=== PATIENT | female | born 2000 | race Caucasian/White ===

== ENCOUNTER 2023-04-14 09:47 | Emergency (ER) | payer BC, SELFPAY ==
[2023-04-14 09:59] VITALS: BP 167/94; PULSE 108; RESP 18; TEMP 36.7; O2SAT 95; BMI 38.3
--- NOTE | 2023-04-14 10:04 | ED.URI1 ---
HPI - URI/Sore Throat General Chief Complaint: Upper Respiratory Infection Stated Complaint: SORE THROAT Time Seen by Provider: 04/14/23 10:04 History of Present Illness HPI Narrative: Chest emergency department complaining of a sore throat. Patient states she's had a sore throat for 3 days. She denies any difficulty swallowing but states that it hurts. She has tried cough drops. She denies any runny nose or cough. She denies any chest, shortness of breath. She denies any fever, chills. Denies any sick contacts. She denies any rashes, headache. She denies any nausea, vomiting, diarrhea, constipation, abdominal pain. Denies any flank pain, hematuria, dysuria. Related Data Allergies Allergy/AdvReac Type Severity Reaction Status Date / Time cephalosporins Allergy Unknown Uncoded 04/14/23 10:48 Review of Systems ROS Status of ROS 10 or more systems reviewed and unremarkable except as noted in history and below Exam Narrative Exam Narrative: Nurses notes and vital signs reviewed and patient is not hypoxic. General: Nontoxic, Well-appearing and in no apparent distress. Skin: Warm, dry, no pallor noted. No Rash Head: Normocephalic, atraumatic. Neck: Supple, non-tender. Eye: Pupils are equal, round and EOMI. No scleral icterus. Ears, Nose, Mouth, and Throat: TM clear, posterior oropharynx erythema, Tonsillar hypertrophy without exudates. No asymmetry. No nasal mucosal hypertrophy, uvula is mid-line Oral mucosa is moist Cardiovascular: Regular Rate and Rhythm without murmur, gallop or rub. Respiratory: No accessory muscle use or respiratory distress. Lungs are clear to auscultation, no wheezing, rales or rhonchi Chest Wall: no tenderness Back: No midline thoracic or lumbar vertebral tenderness. No CVA tenderness Musculoskeletal: normal ROM, no calf or popliteal tenderness, no lower extremity edema/swelling GI: Abdomen is soft, non-distended. Normal bowel sounds. No masses appreciated. No tenderness to palpation. No rebound, guarding, or rigidity noted. Neurological: A&O x4. No cranial nerve dysfunction observed. No truncal ataxia. Moves all extremities. Sensation intact. Psychiatric: Cooperative and interactive. Normal mood and affect. Constitutional Vital Signs - 24 hr 04/14/23 09:59 Temperature 98.1 F Pulse Rate [Monitor] 108 H Respiratory Rate 18 Blood Pressure [Right Arm] 167/94 H Pulse Oximetry 95 Oxygen Delivery Method Room Air Course Vital Signs Vital signs: Vital Signs Temperature 98.1 F 04/14/23 09:59 Pulse Rate 108 H 04/14/23 09:59 Respiratory Rate 18 04/14/23 09:59 Blood Pressure 167/94 H 04/14/23 09:59 Pulse Oximetry 95 04/14/23 09:59 Oxygen Delivery Method Room Air 04/14/23 09:59 Temperature 98.1 F 04/14/23 09:59 Pulse Rate 108 H 04/14/23 09:59 Respiratory Rate 18 04/14/23 09:59 Blood Pressure 167/94 H 04/14/23 09:59 Pulse Oximetry 95 04/14/23 09:59 Oxygen Delivery Method Room Air 04/14/23 09:59 MDM - URI/Sore Throat MDM Narrative Medical decision making narrative: Other results discussed with patient. Patient advised she is ALLERGIC to cephalosporins. She has taken amoxicillin in the past. She opts for an injection of Bicillin L-A. Patient is advised follow-up with primary care doctor regarding her blood pressure. She states she had preeclampsia but has never been diagnosed with hypertension. Advised to monitor her blood pressure at home and other settings and documented so when she sees her doctor she couldn't give them readings. At this time the patient is without objective evidence of an acute process requiring hospitalization or inpatient management. The patient has remained hemodynamically stable. No additional indication for emergent studies at this time. I answered all questions. Discussed discharge instructions including standard anticipatory guidance and what should prompt a return to the emergency department, including if they get worse are not getting better or develops any new or concerning symptoms. I've given them specific time frame in which to follow-up, and who to follow-up with. The patient demonstrates understanding. Patient is nontoxic and stable for discharge with outpatient follow-up. This note was created with the assistance of a speech recognition program. Although the intention is to generate documents that actually reflects the content of the visit, no guarantees can be provided that every mistake has been identified and corrected by editing. Differential Diagnosis Differential diagnosis: Likely upper respiratory infection, otitis media, sinusitis, viral infection and pharyngitis Lab Data Attestation: I reviewed the patient's lab results. Labs: Lab Results 04/14/23 Range/Units 10:01 Streptococcus Screen Positive A Discharge Plan Discharge Chief Complaint: Upper Respiratory Infection Clinical Impression: Acute streptococcal pharyngitis Patient Disposition: Home, Self-Care Time of Disposition Decision: 10:50 Condition: Good Mode of Transportation: Private Vehicle Instructions: Strep Throat (ED) Additional Instructions: [id number] lozenges, follow up with primary care doctor regarding high blood pressure. Return to the emergency department with any positive symptoms as discussed. Stand Alone Forms: Portal Instructions Discharge Date/Time: 04/14/23 11:22
[2023-04-14 10:41] LABS: Internal Control Within Normal Limits; Strep A Antigen Screen Positive
[2023-04-14] MEDS: PENICILLIN G BENZATHINE 1,200,000 UNIT/2 ML SYRINGE 1200000 UNIT IM (11:18)
== END 2023-04-14 11:22 | disposition home or self-care (01) ==
LOC: ER 04-17 08:13
PROVIDERS: Emergency Provider Emergency Medicine; PCP Specialist
DX: J02.0 Streptococcal pharyngitis (principal)
CPT/HCPCS: 87880; 96374; 99284

== ENCOUNTER 2023-06-23 07:19 | Emergency (ER) | payer BC, OTHER, SELFPAY ==
[2023-06-23 07:23] VITALS: BP 132/86; PULSE 96; RESP 16; TEMP 36.7; O2SAT 97; BMI 38.7
[2023-06-23] MEDS: FLUORESCEIN SODIUM 1 MG STRIP OP (07:49)
--- NOTE | 2023-06-23 07:51 | ED.EYEPROB1 ---
HPI - Eye Problem General Chief complaint: Eye Problems Stated complaint: EYE REDNESS Time Seen by Provider: 06/23/23 07:32 Source: patient Mode of arrival: walk-in Limitations: no limitations History of Present Illness HPI Narrative: bilateral eye redness and pain. No injury. Does not wear contact lenses - wears glasses. No URI symptoms. Related Data Previous Rx's Medication Instructions Recorded tobramycin 0.3 %-dexamethasone 0.1 1 drp ophthalmic (eye) Q6H 7 days 06/23/23 % eye drops,suspension (TobraDex) #5 mL Allergies Allergy/AdvReac Type Severity Reaction Status Date / Time cefaclor [From [facility]] AdvReac Severe Verified 06/23/23 07:27 cephalosporins Allergy Unknown Uncoded 06/23/23 07:27 PFSH PFSH Social History Smoking status: Never smoker Exam Narrative Exam Narrative: General: The patient appears well and in no apparent distress. Patient is resting comfortably on cart. Skin: Warm, dry, no pallor noted. Head: Normocephalic, atraumatic Neck: Supple, trachea mid-line, no tenderness, no lymphadenopathy Eye: Normal extraocular motion without associated pain. Pupils equal, round and reactive to light. Conjunctival injection noted bilaterally. No swelling of the upper/lower eyelid. Patient's upper eyelid was everted - no evidence of foreign body. The patient had ALCAINE/TETRACAINE applied to the left & right eye with fluorescein dye instilled afterward. Exam with Wood's lamp showed NO uptake at the cornea. No evidence of hyphema, dendritic lesion, corneal ulcerations, preseptal cellulitis or orbital cellulitis. Ears, Nose, Mouth, and Throat: oral mucosa is moist Respiratory: Patient is in no distress Neurological: A&O x4, normal speech Psychiatric: Cooperative and interactive. Constitutional Vital Signs, click to edit/add: Last Vital Signs Temp 98.1 F 06/23/23 07:23 Pulse 96 H 06/23/23 07:23 Resp 16 06/23/23 07:23 BP 132/86 06/23/23 07:23 Pulse Ox 97 06/23/23 07:23 O2 Del Method Room Air 06/23/23 07:23 Course Vital Signs Vital signs: Vital Signs Temperature 98.1 F 06/23/23 07:23 Pulse Rate 96 H 06/23/23 07:23 Respiratory Rate 16 06/23/23 07:23 Blood Pressure 132/86 06/23/23 07:23 Pulse Oximetry 97 06/23/23 07:23 Oxygen Delivery Method Room Air 06/23/23 07:23 Temperature 98.1 F 06/23/23 07:23 Pulse Rate 96 H 06/23/23 07:23 Respiratory Rate 16 06/23/23 07:23 Blood Pressure 132/86 06/23/23 07:23 Pulse Oximetry 97 06/23/23 07:23 Oxygen Delivery Method Room Air 06/23/23 07:23 MDM - Eye Problem MDM Narrative Medical decision making narrative: prescribed tobradex and referred to [facility] for follow up Discharge Plan Discharge Chief Complaint: Eye Problems Clinical Impression: Conjunctivitis Patient Disposition: Home, Self-Care Time of Disposition Decision: 07:49 Prescriptions / Home Meds: New tobramycin-dexamethasone [TobraDex] 0.3-0.1 % drops,suspension 1 drp ophthalmic (eye) Q6H 7 Days Qty: 5 0RF Rx Instructions: 1 drop in each eye Stand Alone Forms: Portal Instructions Referrals: ELIANA CASTRO [Physician] - As soon as possible ELIANA HERNANDEZ [Physician] - As soon as possible
== END 2023-06-23 07:59 | disposition home or self-care (01) ==
PROVIDERS: Emergency Provider Emergency Medicine; PCP Family Medicine
DX: H10.9 Unspecified conjunctivitis (principal)
CPT/HCPCS: 99284

== ENCOUNTER 2023-11-12 22:52 | Outpatient (REF) | payer BC, OTHER, SELFPAY ==
[2023-11-15 18:10] LABS: Age Gdln ACOG Testing Note (.); IGP, rfx Aptima HPV ASCU Note (.)
== END 2023-11-12 22:53 | disposition home or self-care (01) ==
LOC: LAB 22:52
PROVIDERS: PCP Family Medicine; Visit Provider Obstetrics & Gynecology
DX: Z01.419 Encounter for gynecological examination (general) (routine) without abnormal findings (principal)
CPT/HCPCS: G0145

== ENCOUNTER 2024-01-02 16:13 | Emergency (ER) | payer BC, OTHER, SELFPAY ==
[2024-01-02 16:17] VITALS: BP 137/96; PULSE 101; RESP 20; TEMP 37.6; O2SAT 97; BMI 43.8
--- NOTE | 2024-01-02 16:25 | ED.GENADUL1 ---
HPI - General Adult General Chief complaint: Upper Respiratory Infection Stated complaint: Sore THROAT Time Seen by Provider: 01/02/24 16:24 Source: patient Mode of arrival: walk-in Limitations: no limitations History of Present Illness HPI narrative: Patient is a 23-year-old female who is presenting to the ER with chief complaint of sore throat. Patient states that she has been sick for 2-3 days of a sore throat, sinus congestion. Patient's mother is at home with COVID. Patient has no nausea, vomiting, diarrhea. 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 No specific sick contacts, she heard a 1 child having strep throat last week. Patient has had 2 home, tests that were negative. Patient chief concern is strep throat. Patient has no rash. No significant headache, neck pain, and other significant complaints. All systems are negative except as noted/marked. All systems reviewed and otherwise negative. Nurses note and vital signs reviewed and patient is not hypoxic. General: The patient appears well and in no apparent distress. Patient is resting comfortably on cart. Patient is not toxic, lethargic, or listless Skin: Warm, dry, no pallor noted. There is no rash noted. No petechiae, purpura. Head: Normocephalic, atraumatic Eye: Normal conjunctiva, no drainage, EOMI. PERRL Ears, Nose, Mouth, and Throat: oral mucosa is moist. Bilateral tympanic membrane shows no erythema, perforation or bulging. Patient has mild clear drainage noted to the posterior pharynx. No petechiae or exudate. No unilateral swelling. Nares patent. Mouth without vesicles. Cardiovascular: Regular Rate and Rhythm, no murmur, gallop, rub Respiratory: Patient is in no distress, no accessory muscle use, lungs are clear to auscultation, no wheezing, rales or rhonchi Back: non-tender, GI: Obese, soft, no tenderness Musculoskeletal: Patient has full range of motion of all of the extremities, no motor, sensory, or focal neurological deficits Neurological: A&O x4, normal speech Psychiatric: Cooperative Related Data Home Medications Medication Instructions Recorded Confirmed No Known Home Medications 01/02/24 01/02/24 Allergies Allergy/AdvReac Type Severity Reaction Status Date / Time cefaclor [From Ceclor] AdvReac Severe Verified 06/23/23 07:27 cephalosporins Allergy Unknown Uncoded 06/23/23 07:27 PFSH [facility] Social History Smoking status: Never smoker Exam Constitutional Vital Signs, click to edit/add: Last Vital Signs Temp 99.6 F 01/02/24 16:17 Pulse 101 H 01/02/24 16:17 Resp 20 01/02/24 16:17 BP 137/96 H 01/02/24 16:17 Pulse Ox 98 01/02/24 16:28 O2 Del Method Room Air 01/02/24 16:28 Course Vital Signs Vital signs: Vital Signs Temperature 99.6 F 01/02/24 16:17 Pulse Rate 101 H 01/02/24 16:17 Respiratory Rate 20 01/02/24 16:17 Blood Pressure 137/96 H 01/02/24 16:17 Pulse Oximetry 97 01/02/24 16:17 Oxygen Delivery Method Room Air 01/02/24 16:17 Temperature 99.6 F 01/02/24 16:17 Pulse Rate 101 H 01/02/24 16:17 Respiratory Rate 20 01/02/24 16:17 Blood Pressure 137/96 H 01/02/24 16:17 Pulse Oximetry 98 01/02/24 16:28 Oxygen Delivery Method Room Air 01/02/24 16:28 Medical Decision Making MDM Narrative Medical decision making narrative: Patient was given oral Decadron to help with pharyngitis, and help with illness. Patient's had 2 Covid tests were negative at home. Strep test is negative. Education on treating symptoms was done at bedside and on discharge paperwork. Patient will follow-up with PCP. Work note was given if needed. Patient had a purple popsicle no difficulty. Patient looks well. Lab Data Labs: Lab Results 01/02/24 Range/Units 16:25 Streptococcus Screen Negative Discharge Plan Discharge Chief Complaint: Upper Respiratory Infection Clinical Impression: Sinus congestion, Flu-like symptoms, Pharyngitis Patient Disposition: Home, Self-Care Time of Disposition Decision: 16:58 Condition: Fair Prescriptions / Home Meds: No Action No Known Home Medications Instructions: Pharyngitis (ED), Cold Symptoms (ED) Additional Instructions: Increase fluids at home, Gatorade, Powerade, or water. Alternate using DayQuil, NyQuil, and Flonase. At Mucinex as well as needed. Alternate Tylenol and Motrin every 4 hours to help with fever control, body aches or joint pain. Use [id number] vitamin C, vitamin D3, and zinc to help fight infection and help with her immune system. Stand Alone Forms: Work/School Release, Portal Instructions Referrals: VLAD GARCIA [Primary Care Provider] - 1 week Discharge Date/Time: 01/02/24 17:14
[2024-01-02 16:28] VITALS: O2SAT 98
[2024-01-02 16:41] LABS: Internal Control Within Normal Limits; Strep A Antigen Screen Negative
[2024-01-02] MEDS: DEXAMETHASONE SOD PHOS 10 MG/ML VIAL 16 MG PO (17:09)
== END 2024-01-02 17:14 | disposition home or self-care (01) ==
PROVIDERS: Emergency Provider Emergency Medicine; PCP Family Medicine
DX: J02.9 Acute pharyngitis, unspecified (principal); R09.81 Nasal congestion
CPT/HCPCS: 87070; 87880; 99283; J1100

== ENCOUNTER 2024-09-04 18:55 | Emergency (ER) | payer MEDICAID, SELFPAY ==
[2024-09-04 19:00] VITALS: BP 164/107; PULSE 102; TEMP 36.7; O2SAT 96; BMI 45.4
--- OUTSIDE RECORDS SUMMARY | 2024-09-04 19:00 | XMS_ITS | CCD ---
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 a thromboembolic event cannot be diagnosed with certainty on the basis of the reference range. D-Dimers may also be elevated for a variety of disorders including: advanced age, , coronary disease, cancer, liver disease, infection, inflammation, hematoma, DIC, trauma, post-surgery, diabetes, thrombolytic or anticoagulant therapy, stress, and generalized hospitalization. Performed By: #### N BOX #### [facility] [address] [place] [address] Dr. Oscar Maddox FIBRINOGENon 06-27-2022 FIBRINOGEN 653.0 mg/dl Critically high 200.0-400.0 [facility] Comment on above: Performed By: #### N BOX #### [facility] [address] [place] [address] Dr. Oscar Maddox PROF 14(COMP METB)on 022 Albumin [Mass/Vol] 2.2 g/dL Critically low 3.4-5.[address] [facility] Comment on above: Performed By: #### R UBIGG #### [facility] [address] [address] [address] Oscar Maddox Albumin/Globulin [Mass ratio] 0.6 {ratio} Normal [facility] Comment on above: Performed By: #### R UBIGG #### [facility] [address] [address] [address] Oscar Maddox ALP [Catalytic activity/Vol] 157 U/L Critically high 46-116 [facility] Comment on above: Performed By: #### R UBIGG #### [facility] [address] [address] [address] Oscar Maddox ALT [Catalytic activity/Vol] 53 U/L Normal 14-59 [facility] Comment on above: Performed By: #### R UBIGG #### [facility] [address] [place] [address] Dr. Oscar Maddox Anion gap [Moles/Vol] 11.2 mmol/L Normal [facility] Comment on above: Performed By: #### R UBIGG #### [facility] [address] [place] [address] Dr. Oscar Maddox AST [Catalytic activity/Vol] 72 U/L Critically high 15-37 [facility] Comment on above: Performed By: #### R UBIGG #### [facility] [address] [place] [address] Dr. Oscar Maddox Bilirubin [Mass/Vol] 0.9 mg/dL Normal 0.2-1.0 [facility] Comment on above: Performed By: #### R UBIGG #### [facility] [address] [place] [address] Dr. Oscar Maddox Calcium [Mass/Vol] 7.9 mg/dL Critically low 8.5-10.1 [facility] Comment on above: Performed By: #### R UBIGG #### [facility] [address] [place] [address] Dr. Oscar Maddox Chloride [Moles/Vol] 103 mmol/L Normal 98-107 [facility] Comment on above: Performed By: #### R UBIGG #### [facility] [address] [place] [address] Dr. Oscar Maddox CO2 [Moles/Vol] 22.7 mmol/L Normal 21.0-32.0 [facility] Comment on above: Performed By: #### R UBIGG #### [facility] [address] [place] [address] Dr. Oscar Maddox Creatinine [Mass/Vol] 0.87 mg/dL Normal 0.55-1.02 [facility] Comment on above: Performed By: #### R UBIGG #### [facility] [address] [place] [address] Dr. Oscar Maddox EGFR-AF ALBANIAN >60 Normal >=60 [facility] Comment on above: Performed By: #### R UBIGG #### [facility] [address] [place] [address] Dr. Oscar Maddox EGFR-NON AF ALBANIAN >60 Normal >=60 [facility] Comment on above: Performed By: #### R UBIGG #### [facility] [address] [place] [address] Dr. Oscar Maddox Globulin (S) [Mass/Vol] 3.8 g/dL Normal [facility] Comment on above: Performed By: #### R UBIGG #### [facility] [address] [place] [address] Dr. Oscar Maddox Glucose [Mass/Vol] 109 mg/dL Critically high 74-106 [facility] Comment on above: Performed By: #### R UBIGG #### [facility] [address] [address] [address] Oscar Maddox Potassium [Moles/Vol] 3.9 mmol/L Normal 3.5-5.1 [facility] Comment on above: Performed By: #### R UBIGG #### [facility] [address] [place] [address] Dr. Oscar Maddox Protein [Mass/Vol] 6.0 g/dL Critically low 6.4-8.2 Th [facility] Comment on above: Performed By: #### R UBIGG #### [facility] [address] [place] [address] Dr. Oscar Maddox Sodium [Moles/Vol] 133 mmol/L Critically low 136-145 Th [facility] Comment on above: Performed By: #### R UBIGG #### [facility] [address] [address] [address] Oscar Maddox Urea nitrogen [Mass/Vol] 13.0 mg/dL Normal 7.0-18.0 [facility] Comment on above: Performed By: #### R UBIGG #### [facility] [address] [address] [address] Oscar Maddox Urea nitrogen/Creatinine [Mass ratio] 14.9 mg/mg Normal [facility] Comment on above: Performed By: #### R UBIGG #### [facility] [address] [place] [address] Dr. Oscar Maddox PROTIMEon 06-27-2022 INR Coag (PPP) [Relative time] {INR} Normal [facility] Comment on above: Performed By: #### N BOX #### [facility] [address] [place] [address] Dr. Oscar Maddox INR GUIDELINES SEE BELOW Normal [facility] Comment on above: Result Comment: JO ANN RED INR: 2.0 - 3.0 CONDITIONS NOT LISTED BELOW 2.5 - 3.5 FOR PROSTHETIC HEART VALVE REPLACEMENT 2.5 - 3.5 RECURRENT THROMBOSIS Performed By: #### N BOX #### [facility] [address] [place] [address] Dr. Oscar Maddox PT Coag (PPP) [Time] 10.0 s Normal 9.0-11.6 [facility] Comment on above: Performed By: #### N BOX #### [facility] [address] [place] [address] Dr. Oscar Maddox PTTon 06-27-2022 aPTT Coag (Bld) [Time] 28.9 s Normal 22.3-36.2 [facility] Comment on above: Performed By: #### N BOX #### [facility] [address] [place] [address] Dr. Oscar Maddox TYPE AND SCREENon 08-23-2022 TYPE AND SCREEN Negative Normal [facility] Comment on above: Performed By: #### C BC #### [facility] [address] [place] [address] Dr. Oscar Maddox URIC ACID SERUMon 06-27-2022 Urate [Mass/Vol] 6.6 mg/dL Critically high 2.6-6.0 [facility] Comment on above: Performed By: #### R UBIGG #### [facility] [address] [place] [address] Dr. Oscar Maddox CULTURE URINEon 06-26-2022 CULTURE URINE Culture Observations : LIGHT GROWTH OF MIXED GENITAL JAKY. NO POTENTIAL PATHOGENS SEEN. Normal [facility] Comment on above: Performed By: #### C BC #### [facility] [address] [place] [address] Dr. Oscar Maddox UA (CLEAN/CATCH) [employer]/MICRO I F IND.on 06-26-2022 Bilirubin Ql (U) Negative Normal NEGATIVE [facility] Comment on above: Performed By: #### R UBIGG #### [facility] [address] [place] [address] Dr. Oscar Maddox Clarity (U) CLEAR Normal CLEAR [facility] Comment on above: Performed By: #### R UBIGG #### [facility] [address] [place] [address] Dr. Oscar Maddox Color (U) YELLOW Normal YELLOW [facility] Comment on above: Performed By: #### R UBIGG #### [facility] [address] [place] [address] Dr. Oscar Maddox Glucose Ql (U) Negative Normal NEGATIVE [facility] Comment on above: Performed By: #### R UBIGG #### [facility] [address] [place] [address] Dr. Oscar Maddox Hemoglobin Ql (U) MODERATE Abnormal NEGATIVE [facility] Comment on above: Performed By: #### R UBIGG #### [facility] [address] [place] [address] Dr. Oscar Maddox Ketones Ql (U) Negative Normal NEGATIVE [facility] Comment on above: Performed By: #### R UBIGG #### [facility] [address] [place] [address] Dr. Oscar Maddox LEUKOCYTES Negative Normal NEGATIVE [facility] Comment on above: Performed By: #### R UBIGG #### [facility] [address] [place] [address] Dr. Oscar Maddox Nitrite Ql (U) Negative Normal NEGATIVE [facility] Comment on above: Performed By: #### R UBIGG #### [facility] [address] [place] [address] Dr. Oscar Maddox pH (U) 7.0 [pH] Normal 5-9 [facility] Comment on above: Performed By: #### R UBIGG #### [facility] [address] [place] [address] Dr. Oscar Maddox SPEC GRAVITY 1.020 Normal 1.005-<=1.025 [facility] Comment on above: Performed By: #### R UBIGG #### [facility] [address] [place] [address] Dr. Oscar Maddox UA PROTEIN >300 Abnormal NEGATIVE/ TRACE [facility] Comment on above: Performed By: #### R UBIGG #### [facility] [address] [place] [address] Dr. Oscar Maddox UR MICRO IND INDICATED Normal [facility] Comment on above: Performed By: #### R UBIGG #### [facility] [address] [place] [address] Dr. Oscar Maddox Urobilinogen Qn (U) 0.2 {Natasha'U}/dL Normal 0.2 - 1. 0 [facility] Comment on above: Performed By: #### R UBIGG #### [facility] [address] [place] [address] Dr. Oscar Maddox URINE MICROSCOPIC ONLYon BACTERIA SMALL Abnormal NONE SEEN [facility] Comment on above: Performed By: #### R UBIGG #### [facility] [address] [place] [address] Dr. Oscar Maddox Bacteria identified Cx Nom (U) INDICATED Normal [facility] Comment on above: Performed By: #### R UBIGG #### [facility] [address] [address] [address] Oscar Maddox CAST SEEN Abnormal NONE SEEN [facility] Comment on above: Performed By: #### R UBIGG #### [facility] [address] [address] [address] Oscar Maddox Crystals LM Nom (Urine sed) NONE SEEN Normal NONE SEEN [facility] Comment on above: Performed By: #### R UBIGG #### [facility] [address] [address] [address] Oscar Maddox Epithelial cells LM Ql (Urine sed) FEW Abnormal NONE SEEN /RARE [facility] Comment on above: Performed By: #### R UBIGG #### [facility] [address] [place] [address] Dr. Oscar Maddox HYALINE CAST RARE Normal [facility] Comment on above: Performed By: #### R UBIGG #### [facility] [address] [place] [address] Dr. Oscar Maddox MUCOUS TRACE Abnormal NONE SEEN [facility] Comment on above: Performed By: #### R UBIGG #### [facility] [address] [address] [address] Oscar Maddox RBC 0-2 Normal 0-2 [facility] Comment on above: Performed By: #### R UBIGG #### [facility] [address] [address] [address] Oscar Maddox WBC 2-5 Abnormal NONE SEEN [facility] Comment on above: Performed By: #### R UBIGG #### [facility] [address] [address] [address] Oscar Maddox WBC CELLULAR CAST RARE Normal [facility] Comment on above: Performed By: #### R UBIGG #### [facility] [address] [place] [address] Dr. Oscar Maddox US PREG GROWTHon 06-15-2022 US PREG GROWTH EXAMINATION: US PREG GROWTH HISTORY: Large for gestation age fetus COMPARISON: No relevant comparison available. FINDINGS: Heart Rate: 152.0 bpm Amniotic Fluid Volume: 14.6 cm Number: 1.0 Position: Cephalic presentation, longitudinal lie Maximum Vertical Pocket: 4.7 cm cm 3.2 cm cm 3.7 cm cm 3.1 cm cm BIOMETRY: BPD: 8.1 cm cm; 32 weeks 5 days; 28% HC: 29.4 cmcm; 32 weeks 3 days, 5% AC: 29.7 cm cm; 33 weeks 5 days, 64% FL: 6.3 cm cm; 32 weeks 5 days; 25.7 % % EFW: 2142.4 grams, 4 lbs. 12 oz., 39% FL/AC: 21.4 FL/BPD: 77.9 HC/AC: 1.0 GESTATIONAL AGE: Age by EDC: 33 weeks 2 days BALBIR by EDC: 08/01/2022 Age by US: 32 weeks 6 days BALBIR by US: 08/04/2022 IMPRESSION: Normal interval growth Electronically authenticated by: CARISA BARKER Date: 2022-06-15 16:44 Normal [facility] GLUCOSE - 1HRon 05-09-2022 Glucose [Mass/Vol] 111 mg/dL Critically high 74-106 [facility] Comment on above: Performed By: #### N BOX #### [facility] [address] [place] [address] Dr. Oscar Maddox HEMOGRAM AND PLATELon 2021 Hematocrit (Bld) [Volume fraction] 37.3 % Normal 36.0-48.0 [facility] Comment on above: Performed By: #### N BOX #### [facility] [address] [place] [address] Dr. Oscar Maddox Hemoglobin (Bld) [Mass/Vol] 12.5 g/dL Normal 12.0-16.0 [facility] Comment on above: Performed By: #### N BOX #### [facility] [address] [place] [address] Dr. Oscar Maddox MCH (RBC) [Entitic mass] 29.6 pg Normal 26.7-34.0 [facility] Comment on above: Performed By: #### N BOX #### [facility] [address] [place] [address] Dr. Oscar Maddox MCHC (RBC) [Mass/Vol] 33.5 g/dL Normal 29.9-35.2 [facility] Comment on above: Performed By: #### N BOX #### [facility] [address] [place] [address] Dr. Oscar Maddox MCV (RBC) [Entitic vol] 88.4 fL Normal 81.0-99.0 [facility] Comment on above: Performed By: #### N BOX #### [facility] [address] [place] [address] Dr. Oscar Maddox PLT 266 103/ul Normal 150-450 [facility] Comment on above: Performed By: #### N BOX #### [facility] [address] [place] [address] Dr. Oscar Maddox RBC 4.22 106/ul Normal 4.20-5.40 [facility] Comment on above: Performed By: #### N BOX #### [facility] [address] [place] [address] Dr. Oscar Maddox WBC 10.8 103/ul Normal 4.0-11.0 [facility] Comment on above: Performed By: #### N BOX #### [facility] [address] [place] [address] Dr. Oscar Maddox PAP ACOG PANEL 2: 21 to 29on 03-15-2022 . . Normal [facility] Comment on above: Performed By: #### R UBIGG #### [facility] [address] [place] [address] Dr. Oscar Maddox Age Gdln ACOG Testing 19- Normal [facility] Comment on above: Performed By: #### R UBIGG #### [facility] [address] [place] [address] Dr. Oscar Maddox DIAGNOSIS: Comment Normal [facility] Comment on above: Result Comment: NEGA TIVE FOR INTRAEPITHELIAL LESION OR MALIGNANCY. Performed By: #### R UBIGG #### [facility] [address] [place] [address] Dr. Oscar Maddox Methodology: Comment Normal [facility] Comment on above: Result Comment: This liquid based ThinPrep(R) pap test was screened with the use of an image guided system. Performed By: #### R UBIGG #### [facility] [address] [place] [address] Dr. Oscar Maddox Note: Comment Normal [facility] Comment on above: Result Comment: The Pap smear is a screening test designed to aid in the detection of premalignant and malignant conditions of the uterine cervix. It is not a diagnostic procedure and should not be used as the sole means of detecting cervical cancer. Both false-positive and false-negative reports do occur. . Performed By: #### R UBIGG #### [facility] [address] [place] [address] Dr. Oscar Maddox Performed by: Comment Normal [facility] Comment on above: Result Comment: [employer] Shared Services Consultant (ASCP) Performed By: #### R UBIGG #### [facility] [address] [place] [address] Dr. Oscar Maddox Reflex Criteria: Comment Normal [facility] Comment on above: Result Comment: The HPV DNA reflex criteria were not met with this specimen result therefore, no HPV testing was performed. . Performed By: #### R UBIGG #### [facility] [address] [place] [address] Dr. Oscar Maddox Specimen adequacy: Comment Normal [facility] Comment on above: Result Comment: Sati sfactory for evaluation. No endocervical component is identified. Performed By: #### R UBIGG #### [facility] [address] [place] [address] Dr. Oscar Maddox US PREG ANATOMY SINGLEon US PREG ANATOMY SINGLE EXAMINATION: US PREG ANATOMY SINGLE HISTORY: screening COMPARISON: No relevant comparison available. TECHNIQUE: Transabdominal sonographic examination was performed for obstetrical and evaluation. FINDINGS: Number: 1 Heart Rate: 155.0 bpm H.B. /min Amniotic Fluid Volume: Subjectively normal. Placental Location: POSTERIOR with lower margin 3.4 cm from os. Cervix Length: 4.3 cm; closed. ANATOMY: Normal Structures -cerebellum, choroid plexus, cisterna magna, lateral cerebral ventricles, orbits, midline falx, hard palate, four-chamber heart, RVOT, LVOT, stomach, kidneys, bladder, umbilical cord insertion into abdomen, three-vessel cord, cervical spine, thoracic spine, lumbar spine, sacral spine, right upper extremity, left upper extremity, right lower extremity, left lower extremity. SUBOPTIMALLY SEEN: None ABNORMALITIES: None BIOMETRY: BPD: 4.9 cm 20 weeks 5 days HC: 18.0 cm 20 weeks 3 days AC: 17.0 cm 22 weeks 0 days FL: 3.3 cm 20 weeks 2 days EFW:403.9 grams; ; 89% FL/AC: 19.4 FL/BPD: 68.1 HC/AC: 1.1 GESTATIONAL AGE: Age by EDC: 20 weeks 2 days BALBIR by EDC: 07/31/2022 Age by current US: 20 weeks 6 days BALBIR by current US: 07/27/2022 IMPRESSION: 1. Single live intrauterine with growth detailed above. Electronically authenticated by: EZRA STRONG Date: 2022-03-15 10:32 Normal [facility] CHLAMYDIA/GONOCOCCUS ALIDA (SW AB/URINE/PAPon 03-11-2022 Chlamydia trachomatis, ALIDA Negative Normal Negative [facility] Comment on above: Performed By: #### R UBIGG #### [facility] [address] [place] [address] Dr. Oscar Maddox Neisseria gonorrhoeae, ALIDA Negative Normal Negative [facility] Comment on above: Performed By: #### R UBIGG #### [facility] [address] [address] [address] Oscar Maddox VAGINITIS/VAGINOSIS DNA PROB [place] 03-10-2022 Virgie species Negative Normal Negative [facility] Comment on above: Performed By: #### N BOX #### [facility] [address] [address] [address] Oscar Maddox Gardnerella vaginalis Negative Normal Negative [facility] Comment on above: Performed By: #### N BOX #### [facility] [address] [address] [address] Oscar Maddox Trichomonas vaginalis Negative Normal Negative [facility] Comment on above: Performed By: #### N BOX #### [facility] [address] [address] [address] Oscar Maddox US PREG PLACENTAon US PREG PLACENTA EXAMINATION: US PREG PLACENTA HISTORY: Patient currently COMPARISON: No relevant comparison available. FINDINGS: PLACENTA: Posterior, grade 0. No evidence of abruption or subchorionic hematoma. HEART RATE: 151 bpm OTHER: None. IMPRESSION: 1. Single live intrauterine . 2. Unremarkable posterior placenta. Electronically authenticated by: EZRA STRONG Date: 2022-03-06 12:12 Normal [facility] JAMES BOX TEST PT SEND OUTo n 01-13-2022 SENT TO REF LAB 01/13/2022 Normal [facility] Comment on above: Performed By: #### N BOX #### [facility] [address] [place] [address] Dr. Oscar Maddox HEPATITIS C VIRUS AB W/ REFL EX QUANTon 01-10-2022 HCV AB <0.1 Normal 0.0-0.9 [facility] Comment on above: Performed By: #### H CVPCRR #### [facility] [address] [address] [address] Oscar Maddox Interpretation: Comment Normal [facility] Comment on above: Result Comment: Nega tive Not infected with HCV, unless recent infection is suspected or other evidence exists to indicate HCV infection. Performed By: #### H CVPCRR #### [facility] [address] [address] [address] Oscar Maddox HEP B SURFACE ANTIGEN SCREEN on 01-08-2022 HBsAg Screen Negative Normal Negative [facility] Comment on above: Performed By: #### N BOX #### [facility] [address] [address] [address] Oscar Maddox HIV 1 AND 2 WITH REFLEXon HIV Screen 4th Generation wRfx Non-Reactive Normal Non Reactive [facility] Comment on above: Result Comment: HIV Negative HIV-1/HIV-2 antibodies and HIV-1 p24 antigen were NOT detected. There is no laboratory evidence of HIV infection. Performed By: #### N BOX #### [facility] [address] [place] [address] Dr. Oscar Maddox RPR QUANTon 01-08-2022 Rapid Plasma Reagin, Quant Non-Reactive Normal NonRea<1:1 [facility] Comment on above: Performed By: #### R PRQ #### [facility] [address] [place] [address] Dr. Oscar Maddox RUBELLA AB IGGon 01-08-2022 Rubella Antibodies, IgG 3.08 index Normal Immune >0.99 [facility] Comment on above: Result Comment: Non- immune <0.90 Equivocal 0.90 - 0.99 Immune >0.99 Performed By: #### R UBIGG #### [facility] [address] [place] [address] Dr. Oscar Maddox CBC AUTO DIFFon 01-07-2022 BASO # 0.0 103/ul Normal 0.0-0.1 [facility] Comment on above: Performed By: #### C BC #### [facility] [address] [place] [address] Dr. Oscar Maddox Basophils/100 WBC (Bld) 0.5 % Normal 0.2-2.0 [facility] Comment on above: Performed By: #### C BC #### [facility] [address] [place] [address] Dr. Oscar Maddox EO # 0.1 103/ul Normal 0.0-0.7 [facility] Comment on above: Performed By: #### C BC #### [facility] [address] [place] [address] Dr. Oscar Maddox Eosinophils/100 WBC (Bld) 1.5 % Normal 0.9-7.0 [facility] Comment on above: Performed By: #### C BC #### [facility] [address] [place] [address] Dr. Oscar Maddox Erythrocyte distribution width (RBC) [Ratio] 12.6 % Normal 11.0-15.0 [facility] Comment on above: Performed By: #### C BC #### [facility] [address] [place] [address] Dr. Oscar Maddox Hematocrit (Bld) [Volume fraction] 39.8 % Normal 36.0-48.0 [facility] Comment on above: Performed By: #### C BC #### [facility] [address] [place] [address] Dr. Oscar Maddox Hemoglobin (Bld) [Mass/Vol] 13.2 g/dL Normal 12.0-16.0 [facility] Comment on above: Performed By: #### C BC #### [facility] [address] [place] [address] Dr. Oscar Maddox IG # 0.03 10e3/ul Normal 0.00-0.03 [facility] Comment on above: Performed By: #### C BC #### [facility] [address] [place] [address] Dr. Oscar Maddox IG % 0.4 % Normal 0.0-0.5 [facility] Comment on above: Performed By: #### C BC #### [facility] [address] [place] [address] Dr. Oscar Maddox LYMPH # 2.0 103/ul Normal 1.2-3.8 [facility] Comment on above: Performed By: #### C BC #### [facility] [address] [place] [address] Dr. Oscar Maddox Lymphocytes/100 WBC (Bld) 23.7 % Normal 20.5-60.0 [facility] Comment on above: Performed By: #### C BC #### [facility] [address] [place] [address] Dr. Oscar Maddox MANUAL DIFF REQ NO Normal [facility] Comment on above: Performed By: #### C BC #### [facility] [address] [place] [address] Dr. Oscar Maddox MCH (RBC) [Entitic mass] 28.9 pg Normal 26.7-34.0 [facility] Comment on above: Performed By: #### C BC #### [facility] [address] [place] [address] Dr. Oscar Maddox MCHC (RBC) [Mass/Vol] 33.2 g/dL Normal 29.9-35.2 [facility] Comment on above: Performed By: #### C BC #### [facility] [address] [address] [address] Oscar Maddox MCV (RBC) [Entitic vol] 87.3 fL Normal 81.0-99.0 [facility] Comment on above: Performed By: #### C BC #### [facility] [address] [address] [address] Oscar Maddox MONO # 0.4 103/ul Normal 0.3-0.8 [facility] Comment on above: Performed By: #### C BC #### [facility] [address] [place] [address] Dr. Oscar Maddox Monocytes/100 WBC (Bld) 4.3 % Normal 1.7-12.0 [facility] Comment on above: Performed By: #### C BC #### [facility] [address] [place] [address] Dr. Oscar Maddox NEUT # 5.9 103/ul Normal 1.4-6.5 [facility] Comment on above: Performed By: #### C BC #### [facility] [address] [place] [address] Dr. Oscar Maddox Neutrophils/100 WBC (Bld) 69.6 % Normal 43.0-75.0 [facility] Comment on above: Performed By: #### C BC #### [facility] [address] [place] [address] Dr. Oscar Maddox Platelet mean volume (Bld) [Entitic vol] 10.1 fL Normal 9.5-13.5 [facility] Comment on above: Performed By: #### C BC #### [facility] [address] [place] [address] Dr. Oscar Maddox PLT 268 103/ul Normal 150-450 [facility] Comment on above: Performed By: #### C BC #### [facility] [address] [place] [address] Dr. Oscar Maddox RBC 4.56 106/ul Normal 4.20-5.40 [facility] Comment on above: Performed By: #### C BC #### [facility] [address] [address] [address] Oscar Maddox WBC 8.4 103/ul Normal 4.0-11.0 [facility] Comment on above: Performed By: #### C BC #### [facility] [address] [address] [address] Oscar Maddox CULTURE URINEon 01-07-2022 CULTURE URINE Culture Observations : LIGHT GROWTH OF MIXED GENITAL JAKY. NO POTENTIAL PATHOGENS SEEN. Normal [facility] Comment on above: Performed By: #### C BC #### [facility] [address] [address] [address] Oscar Maddox GLYCOHEMOGLOBIN A1Con 2021 ADA RECOMMENDATION ADA THERAPEUTIC TARGET 6.0 - 7.0 ACTION SUGGESTED > 7.0 Normal [facility] Comment on above: Performed By: #### R UBIGG #### [facility] [address] [place] [address] Dr. Oscar Maddox Glucose [Mass/Vol] 105 mg/dL Normal [facility] Comment on above: Performed By: #### R UBIGG #### [facility] [address] [place] [address] Dr. Oscar Maddox HbA1c (Bld) [Mass fraction] 5.3 % Normal <=6.0 [facility] Comment on above: Performed By: #### R UBIGG #### [facility] [address] [place] [address] Dr. Oscar Maddox TYPE AND SCREENon 01-07-2022 TYPE AND SCREEN Negative Normal [facility] Comment on above: Performed By: #### C BC #### [facility] [address] [place] [address] Dr. Oscar Maddox US PREG TVon 12-23-2021 US PREG TV EXAMINATION: US PREG TV HISTORY: Irregular periods COMPARISON: No relevant comparison available. FINDINGS: GESTATIONAL SAC: Present and normal appearing. POLE: Present and normal appearing. YOLK SAC: Present. CARDIAC: Present. UTERUS: Normal size and appearance. OVARIES: Right: Normal. Left: Corpus lutein cyst. CERVIX: 3.7 cm in length and closed. CUL-DE-SAC: Normal. OTHER: None. AGE BY LMP: 8 weeks, 3 days BALBIR BY LMP: 08/01/2022 AGE BY US CRL: 8 weeks, 4 days BALBIR BY US CRL: 07/31/2022 IMPRESSION: 1. Single live intrauterine . Electronically authenticated by: EZRA STRONG Date: 2021-12-23 09:32 Normal [facility] Physician Referralon 021 Physician Referral [phone] [id number] [email or web address] Normal [facility] Encounters Encounter Date Encounter Type Care Provider Facility Start: 12-10-2023 End: 12-10-2023 ambulatory AMY ARAIZA Not Available Start: 11-12-2023 End: 11-12-2023 ambulatory WILMAN BAEZA Not Available Start: 10-23-2023 End: 10-23-2023 ambulatory VLAD GARCIA Not Available Start: 09-28-2022 End: 09-29-2022 ambulatory ARVIND WALDRON Facility:[facility] Start: 08-01-2022 End: 08-07-[address] SATHISH LADD Facility:[facility] Start: 06-27-2022 End: 06-27-[address] NAYELI LEDESMA Facility:[facility] Start: 06-15-2022 End: 06-16-[address] CARISA BARKER Facility:[facility] Start: 05-09-2022 End: 05-10-[address] WILMAN BAEZA Facility:[facility] Start: 03-15-2022 End: 03-16-[address] WILMAN BAEZA Facility:[facility] Start: 03-08-2022 End: 03-08-[address] WILMAN BAEZA Facility:[facility] Start: 03-06-2022 End: 03-06-[address] CHRISTOPHER ORTEZ Facility:[facility] Start: 01-13-2022 End: 01-14-[address] WILMAN BAEZA Facility:[facility] Start: 01-07-2022 End: 01-08-[address] WILMAN BAEZA Facility:[facility] Start: 12-23-2021 End: 12-24-[address] WILMAN BAEZA Facility:[facility] Payers Date Payer Category Payer Unknown [id number] 2000 Unknown [id number] 2.16.84 [id number] 1998 Unknown [id number] 2.16.84 [id number] 1998 Unknown [id number] 2.16.84 [id number] 1998 Unknown [id number] 2.16.84 [id number] 1998 Unknown [id number] 2.16.84 0.1.961576.3.579.2.593 1998 Unknown [id number] 2.16.84 0.1.933773.3.579.2.593 1998 Unknown [id number] 2.16.84 0.1.089620.3.579.2.593 1998 Unknown [id number] 2.16.84 0.1.807195.3.579.2.593 1998 Unknown [id number] 2.16.84 0.1.446169.3.579.2.593 1998 Unknown [id number] 2.16.84 0.1.901394.3.579.2.593 1998 Unknown [id number] 2.16.84 0.1.577436.3.579.2.593 1998 Unknown [id number] 2.16.84 0.1.218851.3.579.2.1259 1998 Unknown [id number] 2.16.84 0.1.588758.3.579.2.1259 1998 Unknown [id number] 2.16.840 .1.741683.3.579.2.1259 1961 Self-pay 1959 Unknown [id number] 1961 Unknown [id number] Unknown [id number] 2.16.84 [id number] Unknown [id number] 2.16.84 [id number] Summary Purpose Family History No Family History Records FoundNo Family History Records FoundNo Family History Records Found Advance Directives No Advanced Directives Records FoundNo Advanced Directives Records FoundNo Advanced Directives Records Found Additional Source Comments INFORMATION SOURCE (unrecogn ized section and content) DATE CREATED AUTHOR 08/06/2021 [facility] DATE CREATED AUTHOR AUTHOR'S ORGANIZ ATION 10/03/2022 Vanesa Chris [facility] DATE CREATED AUTHOR AUTHOR'S ORGANIZ ATION 12/11/2023 [facility] FOR RECORDS PERTAINING TO PATIENTS WHO ARE OR HAVE BEEN ENROLLED IN A CHEMICAL DEPENDENCY/SUBSTANCEABUSE PROGRAM, SOME INFORMATION MAY BE OMITTED. This clinical summary was aggregated from multiple sources. Caution should be exercised in using it in the provision of clinical care. This summary normalizes information from multiple sources, and as a consequence, information in this document may materially change the coding, format and clinical context of patient data. In addition, data may be omitted in some cases. CLINICAL DECISIONS SHOULD BE BASED ON THE PRIMARY CLINICAL RECORDS. [facility] [employer] [facility]. provides no warranty or guarantee of the accuracy or completeness of information in this document.
--- NOTE | 2024-09-04 19:10 | XR_ITS ---
The [address] [address] Patient Name: DHARMESH MOCK MRN: [id number] date: 2000 Sex: F Assigned Patient Location: ER Current Patient Location: ED.MAIN Accession/Order Number: [id number] Exam Date: 09/04/2024 19:15 Report Date: 09/04/2024 21:49 At the request of: ARVIND WALDRON Procedure: XR ankle LT min 3V Examination:XR foot LT min 3V, XR ankle LT min 3V INDICATION:pain COMPARISON:None. TECHNIQUE:3 left foot and 3 left ankle views are submitted. FINDINGS: Left foot: No acute fracture or dislocations are present. The joint spaces are well-maintained. There is soft tissue swelling. Left ankle: No acute fracture or dislocations are present. The joint spaces are well-maintained. There is soft tissue swelling. XR/XR ankle LT min 3V IMPRESSION: Soft tissue swelling without acute fracture in the left foot or ankle. Electronically authenticated by: HELEN CALDERON Date: 09/04/2024 21:49
--- NOTE | 2024-09-04 19:10 | XR_ITS ---
The [address] [address] Patient Name: DHARMESH MOCK MRN: [id number] date: 2000 Sex: F Assigned Patient Location: ER Current Patient Location: ED.MAIN Accession/Order Number: [id number] Exam Date: 09/04/2024 19:15 Report Date: 09/04/2024 21:49 At the request of: ARVIND WALDRON Procedure: XR foot LT min 3V Examination:XR foot LT min 3V, XR ankle LT min 3V INDICATION:pain COMPARISON:None. TECHNIQUE:3 left foot and 3 left ankle views are submitted. FINDINGS: Left foot: No acute fracture or dislocations are present. The joint spaces are well-maintained. There is soft tissue swelling. Left ankle: No acute fracture or dislocations are present. The joint spaces are well-maintained. There is soft tissue swelling. XR/XR foot LT min 3V IMPRESSION: Soft tissue swelling without acute fracture in the left foot or ankle. Electronically authenticated by: HELEN CALDERON Date: 09/04/2024 21:49
--- NOTE | 2024-09-04 19:28 | ED_ITS ---
HPI HPI - Extremity Injury (Lower) General Chief Complaint: Extremity Injury, Lower Stated Complaint: Lower INJURY Time Seen by Provider: 09/04/24 19:20 Source: patient Mode of arrival: walk-in Limitations: no limitations History of Present Illness HPI Narrative: states toddler with boots on stepped on her foot around noon today. Has pain of the foot. Able to walk with a limp. No numbness or weakness. Denies other injury or complaints Related Data Home Medications ?Medication ?Instructions ?Recorded ?Confirmed omeprazole PRN acid reflux 09/04/24 Allergies Allergy/AdvReac Type Severity Reaction Status Date / Time pineapple Allergy Severe Anaphylaxis Verified 09/04/24 19:06 [facility] ([facility] AdvReac Severe Unknown Verified 09/04/24 19:06 cephalosporins Allergy Unknown Unknown Uncoded 09/04/24 19:06 Opioid HPI Opioid Management Most Recent Pain and Opioid Data: Last Pain Scale 6 04/14/23 10:08 04/14/23 Review of Systems ROS Status of ROS 10 or more systems reviewed and unremark able except as noted in history and below PFSH PFSH Social History Smoking status: Never smoker Little interest or pleasure in doing things: not at all Feeling down, depressed, or hopeless: not at all Exam Constitutional Vital Signs, click to edit/add: Last Vital Signs Temp 98.1 F 09/04/24 19:00 Pulse 102 H 09/04/24 19:00 Resp 18 09/04/24 19:00 BP 164/107 H 09/04/24 19:00 Pulse Ox 96 09/04/24 19:00 O2 Del Method Room Air 09/04/24 19:00 Common normals: no apparent distress, oriented x3, no limitations, healthy appearing, alert and well nourished [facility] Common normals: normocephalic and head/scalp atraumatic Eye Common normals: PERRL and EOMs intact bilaterally Respiratory Common normals: normal respiratory effort, no retractions and no use of accessory muscles Cardio Common normals: regular rate, regular rhythm, S1 normal heart sound and S2 normal heart sound Extremity Other: tenderness dorsum left foot . no swelling or deformity Neuro Common normals: oriented x3, CN's II-XII intact bilaterally, moves all extremities, no focal motor deficits and no sensory deficits noted Psych Appearance: grossly normal Course Vital Signs Vital signs: Vital Signs Temperature 98.1 F 09/04/24 19:00 Pulse Rate 102 H 09/04/24 19:00 Respiratory Rate 18 09/04/24 19:00 Blood Pressure 164/107 H 09/04/24 19:00 Pulse Oximetry 96 09/04/24 19:00 Oxygen Delivery Method Room Air 09/04/24 19:00 Temperature 98.1 F 09/04/24 19:00 Pulse Rate 102 H 09/04/24 19:00 Respiratory Rate 18 09/04/24 19:00 Blood Pressure 164/107 H 09/04/24 19:00 Pulse Oximetry 96 09/04/24 19:00 Oxygen Delivery Method Room Air 09/04/24 19:00 MDM - Extremity Injury (Lower) MDM Narrative Medical decision making narrative: patient presents with contusion injury dorsum left foot. antalgic gait. no swelling or deformity. xrays ordered xray report pending. I did review the xrays and do not seen any evidence of fracture. Patient informed of the above. provided with an ortho shoe and discharged home Discharge Plan Discharge Chief Complaint: Extremity Injury, Lower Clinical Impression: Contusion of ankle or foot, left Patient Disposition: Home, Self-Care Prescriptions / Home Meds: No Action omeprazole PRN (Reason: acid reflux) Print Language: Greenlandic Instructions: Foot Contusion (ED) Additional Instructions: follow up with your doctor early next week for recheck Referrals: VLAD GARCIA [Primary Care Provider] - 1 week
--- NOTE | 2024-09-04 19:40 | PC.NURSE ---
this patient complains of left ankle pain and swelling onset today when a toddler stepped on her left ankle, per patient this toddler has boots on
--- NOTE | 2024-09-04 21:57 | PC.NURSE ---
i applied a air splint to this patient's left ankle i gave verbal and written discharge orders to this patient and she voices yes to understanding these discharge orders. at time of discharge this patient voices no concerns and shows no signs of distress
== END 2024-09-04 22:02 | disposition home or self-care (01) ==
PROVIDERS: Emergency Provider Internal Medicine; PCP Family Medicine
DX: S90.02XA Contusion of left ankle, initial encounter (principal); S90.32XA Contusion of left foot, initial encounter; W50.0XXA Accidental hit or strike by another person, initial encounter
CPT/HCPCS: 73610; 73630; 99283

== ENCOUNTER 2025-01-09 02:18 | Emergency (ER) | payer SELFPAY ==
--- OUTSIDE RECORDS SUMMARY | 2025-01-09 02:25 | XMS_ITS | CCD ---
Author Organization [facility] Care Team Providers Care Storage Facility Rental Clerk Name Role Phone ARYAN, DR STOVALL Consulting Unavailable WEBSTER, DR SATHISH Nicole Primary Care Unavailable ARYAN, DR STOVALL Attending Unavailable ARYAN, DR STOVALL Admitting Unavailable WEBSTER, DR SATHISH Nicole Primary Care Unavailable ARYAN, DR STOVALL Attending Unavailable ARYAN, DR STOVALL Admitting Unavailable ARYAN, DR STOVALL Consulting Unavailable WEBSTER, DR SATHISH Nicole Primary Care Unavailable ARYAN, DR STOVALL Attending Unavailable ARYAN, DR STOVALL Admitting Unavailable ZIEBER, DR EZRA Welch Consulting Unavailable ARYAN, DR STOVALL Consulting Unavailable WEBSTER, DR SATHISH Nicole Primary Care Unavailable ARYAN, DR STOVALL Attending Unavailable ARYAN, DR STOVALL Admitting Unavailable ARYAN, DR STOVALL Consulting Unavailable WEBSTER, DR SATHISH Nicole Primary Care Unavailable ARYAN, DR STOVALL Attending Unavailable ARYAN, DR STOVALL Admitting Unavailable WEBSTER, DR SATHISH Nicole Primary Care Unavailable ARYAN, DR STOVALL Attending Unavailable ARYAN, DR STOVALL Admitting Unavailable KARASIK, DR TYLER Consulting Unavailable ARYAN, DR STOVALL Attending Unavailable ARYAN, DR STOVALL Admitting Unavailable WEBSTER, DR SATHISH Nicole Primary Care Unavailable ARYAN, DR STOVALL Consulting Unavailable NEELIMA, DR CHRISTOPHER Andrade Consulting Unavailmaia e NEELIMA, DR CHRISTOPHER Andrade Attending Unavailmaia e NEELIMA, DR CHRISTOPHER Andrade Admitting Unavailabl e WILBERTO, DR SATHISH Nicole Primary Care Unavailable ZIMARCER, DR EZRA Welch Consulting Unavailable ARVIND WALDRON Consulting Unavailable MARY SCOTT Attending Unavailable MARY SCOTT Admitting Unavailable WEBSTER, DR SATHISH Nicole Primary Care Unavailable MARY SCOTT Consulting Unavailable DAWOOD MORENO Consulting Unavailable ARYAN, DR STOVALL Consulting Unavailable WILBERTO, DR SATHISH Nicole Primary Care Unavailable ARYAN, DR STOVALL Attending Unavailable ARYAN, DR STOVALL Admitting Unavailable ZIEBER, DR EZRA Welch Consulting Unavailable [place], DR CARISA Jackson Consulting Unavailable WILBERTO, DR SATHISH Nicole Primary Care Unavailable ARYAN, DR STOVALL Attending Unavailable RAYAN, DR STOVALL Admitting Unavailable ARYAN, DR STOVALL Consulting Unavailable ARYAN, DR STOVALL Consulting Unavailable WILBERTO, DR SATHISH Nicole Primary Care Unavailable ARYAN, DR STOVALL Attending Unavailable ARYAN, DR STOVALL Admitting Unavailable WILMAN BAEZA Attending Unavailable AMY ARAIZA Attending Unavailable VLAD GARCIA Attending Unavailable JosiahRebeca yeh Attending Unavailable JosiahRebeca yeh Attending Unavailable Allergies Allergy Classification Reported Allergen(s) Allergy Type Date of Onset Reaction(s) Facility (1 source) Cefuroxime Drug Allergy [facility] Repository (1 source) Cefaclor; Translations: [Ceclor] Drug Allergy [facility] Repository (1 source) Pineapple; Translations: [Pineapple] Propensity to adverse reactions (disorder) [facility] Repository (1 source) No Known Medication Allergies; Translations: [No Known Medication Allergies] Propensity to adverse reactions (disorder) [facility] Repository Problems Active Problems Problem Classification [...] Test Name Value Interpretation Reference Range Facility Ambulatory Visit Summaryon 1 12-23-2023 Ambulatory Visit Summary Ambulatory Visit Summary DHARMESH MOCK :2000 Visit Date:10/22/2024 Ambulatory Visit Instructions Your Diagnosis Breast pain in female BMI 45.0-49.9, adult, Body mass index [BMI] 45.0-49.9, adult Morbid obesity with body mass index (BMI) of 45.0 to 49.9 in adult Nonsmoker Your Care Team Attending Physician - Rebeca Poole Primary Care Physician - Rebeca Poole This Is Your Medications List meloxicam (meloxicam 15 mg Tab) Discharge Vitals Heart Rate (Peripheral) 82 Respiratory Rate 18 Blood Pressure 132/84 Height 167 cm Height 66 in Weight 128 kg Weight 282.191 lb BMI 45.9 Medications What How Much When Why Instructions New meloxicam (meloxicam 15 mg Tab) 1 Tablets By Mouth Every day Breast pain in female BMI 45.0-49.9, adult Morbid obesity with body mass index (BMI) of 45.0 to 49.9 in adult Nonsmoker Pickup at [facility]/pharmacy #[id number] Pharmacy Information [facility]/pharmacy #[id number]: [address], [place] [id number] [phone] Medications and Immunizations Administered Given SARSCoV2 mRNA(yelbljmap-esam-a ucros) vac, Allergies Ceclor (Rash) Pineapple (Tongue swelling, Itching of skin, Throat irritation) Problems Ongoing - Any problem that you are currently receiving treatment for. BMI 45.0-49.9, adult Breast pain in female Morbid obesity with body mass index (BMI) of 45.0 to 49.9 in adult Nonsmoker Premature Patient Survey You may receive a survey via text or e-mail asking about your office visit. Please share your experience with us by completing your survey. We appreciate your feedback and thank you for choosing us for your care. Dorothy [facility] Family Medicine Office/Clini c Noteon 10-22-2024 Family Medicine Office/Clinic Note Family Medicine Office/Clinic Note Chief Complaint Establish Care HPI Staff Dharmesh is a 24 year old female presenting to establish care Establish Care: History: Any previous diagnosis: no History of seeing any specialist: no When was your last doctors visit: last yr Last provider: Dr Webster Any recent labs: >1yr ago Health Maintenance UTD: Colonoscopy: no Mammogram: no Pelvic/Pap: november Acute:bilateral breast pain and tender to the touch Current issues/complaints: BL breast pain. 03/14. Ongoing for 2wks. History of Present Illness pt presents today to establish care. is having VAHID breast pain Review of Systems PHQ Score Initial Depression Screen Score: 2 SCORE Physical Exam Vitals & Measurements HR: 82(Peripheral) RR: 18 BP: 132/84 SpO2: 97% HT: 66 in HT: 167 cm WT: 128 kg WT: 282.191 lb BMI: 45.9 General: alert, no acute distress ENMT: oral mucosa moist, no pharyngeal erythema or exudate Cardiovascular: regular rate and rhythm, normal peripheral perfusion Respiratory: Lungs CTA, respirations non labored Extremities: no deformity, no trauma Neurological: oriented x 4, LOC appropriate for age, CN II-XII intact, motor strength equal & normal bilaterally, speech normal Assessment/Plan 1. Breast pain in female (N64.4: Mastodynia) pt presents today for VAHID breast pain for about 2 weeks. she is currently on her cycle. fibrocystic tissue palpated. no lumps noted on exam. encouraged her to get new more supportive bras, will order meloxicam, encouraged her to get Aspercreme (something for sore muscle pain). will order diagnostic mammogram at [facility]. RTC as needed Ordered: meloxicam, 15 mg = 1 tab(s), Oral, Daily, # 30 tab(s), Refills(s) 0, Pharmacy: [id number], 167, cm, 10/22/24 9:30:00 EST, Height/Length Dosing, 128, kg, 10/22/24 9:30:00 EST, Weight Dosing 2. BMI 45.0-49.9, adult, (Z68.42: Body mass index [BMI] 45.0-49.9, adult)Body mass index [BMI] 45.0-49.9, adult BMI education given Ordered: meloxicam, 15 mg = 1 tab(s), Oral, Daily, # 30 tab(s), Refills(s) 0, Pharmacy: [id number], 167, cm, 10/22/24 9:30:00 EST, Height/Length Dosing, 128, kg, 10/22/24 9:30:00 EST, Weight Dosing 3. Morbid obesity with body mass index (BMI) of 45.0 to 49.9 in adult (E66.01: Morbid (severe) obesity due to excess calories) see above Ordered: meloxicam, 15 mg = 1 tab(s), Oral, Daily, # 30 tab(s), Refills(s) 0, Pharmacy: [facility]/pharmacy #[id number], 167, cm, 10/22/24 9:30:00 EST, Height/Length Dosing, 128, kg, 10/22/24 9:30:00 EST, Weight Dosing 4. Nonsmoker (Z78.9: Other specified health status) continue not smkoing Ordered: meloxicam, 15 mg = 1 tab(s), Oral, Daily, # 30 tab(s), Refills(s) 0, Pharmacy: [facility]/pharmacy #[id number], 167, cm, 10/22/24 9:30:00 EST, Height/Length Dosing, 128, kg, 10/22/24 9:30:00 EST, Weight Dosing Follow-up No qualifying data available Problem List/Past Medical History Ongoing BMI 45.0-49.9, adult Breast pain in female Morbid obesity with body mass index (BMI) of 45.0 to 49.9 in adult Nonsmoker Premature infant Historical No qualifying data Medications meloxicam 15 mg Tab, 15 mg= 1 tab(s), Oral, Daily Allergies Ceclor (Rash) Pineapple (Tongue swelling, Itching of skin, Throat irritation) Social History Alcohol Never., 10/22/2024 Substance Abuse Never., 10/22/2024 Tobacco - Denies Tobacco Use, 07/29/2021 Never (less than 100 in lifetime) Tobacco Use:. Never Smokeless Tobacco Use:. Household tobacco concerns: No. Yes, 10/22/2024 Immunizations Vaccine Date Status SARSCoV2 mRNA(pepsiardf-daqo-j ucros) vac 10/14/2020 Given Normal [facility] Comment on above: Result Comment: Elec tronically Signed By: Rebeca Poole\.deanna\Date and Time Signed: 10/22/24 10:00 EST AMYLASEon 09-28-2022 Amylase [Catalytic activity/Vol] 51 U/L Normal 25-115 [facility] Comment on above: Performed By: #### C BC #### [facility] [address] [place] [address] Dr. Oscar Maddox CBC AUTO DIFFon 09-28-2022 BASO # 0.1 103/ul Normal 0.0-0.1 [facility] Comment on above: Performed By: #### N BOX #### [facility] [address] [place] [address] Dr. Oscar Maddox Basophils/100 WBC (Bld) 0.5 % Normal 0.2-2.0 [facility] Comment on above: Performed By: #### N BOX #### [facility] [address] [place] [address] Dr. Oscar Maddox EO # 0.5 103/ul Normal 0.0-0.7 [facility] Comment on above: Performed By: #### N BOX #### [facility] [address] [place] [address] Dr. Oscar Maddox Eosinophils/100 WBC (Bld) 3.7 % Normal 0.9-7.0 [facility] Comment on above: Performed By: #### N BOX #### [facility] [address] [place] [address] Dr. Oscar Maddox Erythrocyte distribution width (RBC) [Ratio] 13.0 % Normal 11.0-15.0 [facility] Comment on above: Performed By: #### N BOX #### [facility] [address] [place] [address] Dr. Oscar Maddox Hematocrit (Bld) [Volume fraction] 40.5 % Normal 36.0-48.0 [facility] Comment on above: Performed By: #### N BOX #### [facility] [address] [place] [address] Dr. Oscar Maddox Hemoglobin (Bld) [Mass/Vol] 13.1 g/dL Normal 12.0-16.0 [facility] Comment on above: Performed By: #### N BOX #### [facility] [address] [place] [address] Dr. Oscar Maddox IG # 0.04 10e3/ul Critically high 0.00-0.03 [facility] Comment on above: Performed By: #### N BOX #### [facility] [address] [place] [address] Dr. Oscar Maddox IG % 0.3 % Normal 0.0-0.5 [facility] Comment on above: Performed By: #### N BOX #### [facility] [address] [place] [address] Dr. Oscar Maddox LYMPH # 1.9 103/ul Normal 1.2-3.8 [facility] Comment on above: Performed By: #### N BOX #### [facility] [address] [place] [address] Dr. Oscar Maddox Lymphocytes/100 WBC (Bld) 13.9 % Critically low 20.5-60.0 [facility] Comment on above: Performed By: #### N BOX #### [facility] [address] [place] [address] Dr. Oscar Maddox MANUAL DIFF REQ NO Normal [facility] Comment on above: Performed By: #### N BOX #### [facility] [address] [place] [address] Dr. Oscar Maddox MCH (RBC) [Entitic mass] 26.7 pg Normal 26.7-34.0 [facility] Comment on above: Performed By: #### N BOX #### [facility] [address] [place] [address] Dr. Oscar Maddox MCHC (RBC) [Mass/Vol] 32.3 g/dL Normal 29.9-35.2 [facility] Comment on above: Performed By: #### N BOX #### [facility] [address] [place] [address] Dr. Oscar Maddox MCV (RBC) [Entitic vol] 82.5 fL Normal 81.0-99.0 [facility] Comment on above: Performed By: #### N BOX #### [facility] [address] [place] [address] Dr. Oscar Maddox MONO # 0.5 103/ul Normal 0.3-0.8 [facility] Comment on above: Performed By: #### N BOX #### [facility] [address] [place] [address] Dr. Oscar Maddox Monocytes/100 WBC (Bld) 4.0 % Normal 1.7-12.0 [facility] Comment on above: Performed By: #### N BOX #### [facility] [address] [address] [address] Oscar Maddox NEUT # 10.4 103/ul Critically high 1.4-6.5 [facility] Comment on above: Performed By: #### N BOX #### [facility] [address] [address] [address] Oscar Maddox Neutrophils/100 WBC (Bld) 77.6 % Critically high 43.0-75.0 [facility] Comment on above: Performed By: #### N BOX #### [facility] [address] [place] [address] Dr. Oscar Maddox Platelet mean volume (Bld) [Entitic vol] 9.7 fL Normal 9.5-13.5 [facility] Comment on above: Performed By: #### N BOX #### [facility] [address] [place] [address] Dr. Oscar Maddox PLT 338 103/ul Normal 150-450 [facility] Comment on above: Performed By: #### N BOX #### [facility] [address] [place] [address] Dr. Oscar Maddox RBC 4.91 106/ul Normal 4.20-5.40 [facility] Comment on above: Performed By: #### N BOX #### [facility] [address] [place] [address] Dr. Oscar Maddox WBC 13.4 103/ul Critically high 4.0-11.[address] [facility] Comment on above: Performed By: #### N BOX #### [facility] [address] [place] [address] ABD/PELVIS WO CONon [...] DAWOOD MORENO Date: 2022-09-28 21:42 Normal [facility] ER URINE PROFILEon 2 Bilirubin Ql (U) Negative Normal NEGATIVE [facility] Comment on above: Performed By: #### OSVALDO JOY PREGU #### [facility] [address] [place] [address] Dr. Oscar Maddox Clarity (U) CLEAR Normal CLEAR [facility] Comment on above: Performed By: #### OSVALDO JOY PREGU #### [facility] [address] [address] [address] Oscar Maddox Color (U) LT. YELLOW Normal YELLOW [facility] Comment on above: Performed By: #### OSVALDO JOY PREGU #### [facility] [address] [address] [address] Oscar Maddox ERUAHD A micrscopic examination will be performed if indicated. Normal [facility] Comment on above: Performed By: #### OSVALDO JOY PREGU #### [facility] [address] [address] [address] Oscar Maddox Glucose Ql (U) Negative Normal NEGATIVE [facility] Comment on above: Performed By: #### E RUR UMICRO, PREGU #### [facility] [address] [address] [address] Oscar Maddox Hemoglobin Ql (U) MODERATE Abnormal NEGATIVE [facility] Comment on above: Performed By: #### E RUR UMICRO, PREGU #### [facility] [address] [address] [address] Oscar Maddox Ketones Ql (U) Negative Normal NEGATIVE [facility] Comment on above: Performed By: #### Corey RUR UMICRO, PREGU #### [facility] [address] [place] [address] Dr. Oscar Mdadox LEUKOCYTES Negative Normal NEGATIVE [facility] Comment on above: Performed By: #### Corey RURALYICRO, PREGU #### [facility] [address] [address] [address] Oscar Maddox Nitrite Ql (U) Negative Normal NEGATIVE [facility] Comment on above: Performed By: #### Corey LEBRONRALYICRO, PREGU #### [facility] [address] [place] [address] Dr. Oscar Maddox pH (U) 6.0 [pH] Normal 5-9 [facility] Comment on above: Performed By: #### Corey RURALYICRO, PREGU #### [facility] [address] [address] [address] Oscar Maddox SPEC GRAVITY 1.025 Normal 1.005-<=1.025 [facility] Comment on above: Performed By: #### Corey RUR UMICRO, PREGU #### [facility] [address] [place] [address] Dr. Oscar Maddox UA PROTEIN Negative Normal NEGATIVE/ TRACE [facility] Comment on above: Performed By: #### E RUR UMICRO, PREGU #### [facility] [address] [place] [address] Dr. Oscar Maddox UR MICRO IND INDICATED Normal [facility] Comment on above: Performed By: #### E OSVALDO SENA, PREGU #### [facility] [address] [place] [address] Dr. Oscar Maddox Urobilinogen Qn (U) 0.2 {Natasha'U}/dL Normal 0.2 - 1. 0 [facility] Comment on above: Performed By: #### OSVALDO JOY, PREGU #### [facility] [address] [address] [address] Oscar Maddox LIPASEon 09-28-2022 Lipase [Catalytic activity/Vol] 130.0 U/L Normal 73.0-393.0 [facility] Comment on above: Performed By: #### L IPA #### [facility] [address] [place] [address] Dr. Oscar Maddox URon 09-28-2022 , QUAL Negative Normal NEGATIVE [facility] Comment on above: Performed By: #### OSVALDO JOY, PREGU #### [facility] [address] [place] [address] Dr. Oscar Maddox PROF 14(COMP METB)on 022 Albumin [Mass/Vol] 3.6 g/dL Normal 3.4-5.0 [facility] Comment on above: Performed By: #### R UBIGG #### [facility] [address] [place] [address] Dr. Oscar Maddox Albumin/Globulin [Mass ratio] 0.8 {ratio} Normal [facility] Comment on above: Performed By: #### R UBIGG #### [facility] [address] [place] [address] Dr. Oscar Maddox ALP [Catalytic activity/Vol] 81 U/L Normal 46-116 [facility] Comment on above: Performed By: #### R UBIGG #### [facility] [address] [place] [address] Dr. Oscar Maddox ALT [Catalytic activity/Vol] 18 U/L Normal 14-59 [facility] Comment on above: Performed By: #### R UBIGG #### [facility] [address] [address] [address] Oscar Maddox Anion gap [Moles/Vol] 17.9 mmol/L Normal [facility] Comment on above: Performed By: #### R UBIGG #### [facility] [address] [address] [address] Oscar Maddox AST [Catalytic activity/Vol] 11 U/L Critically low 15-37 [facility] Comment on above: Performed By: #### R UBIGG #### [facility] [address] [address] [address] Oscar Maddox Bilirubin [Mass/Vol] 0.3 mg/dL Normal 0.2-1.0 [facility] Comment on above: Performed By: #### R UBIGG #### [facility] [address] [place] [address] Dr. Oscar Maddox Calcium [Mass/Vol] 9.1 mg/dL Normal 8.5-10.1 [facility] Comment on above: Performed By: #### R UBIGG #### [facility] [address] [address] [address] Oscar Maddox Chloride [Moles/Vol] 107 mmol/L Normal 98-107 [facility] Comment on above: Performed By: #### R UBIGG #### [facility] [address] [place] [address] Dr. Oscar Maddox CO2 [Moles/Vol] 21.0 mmol/L Normal 21.0-32.0 [facility] Comment on above: Performed By: #### R UBIGG #### [facility] [address] [address] [address] Oscar Maddox Creatinine [Mass/Vol] 0.81 mg/dL Normal 0.55-1.02 [facility] Comment on above: Performed By: #### R UBIGG #### [facility] [address] [address] [address] Oscar Maddox EGFR-AF TURKISH >60 Normal >=60 [facility] Comment on above: Performed By: #### R UBIGG #### [facility] [address] [address] [address] Oscar Maddox EGFR-NON AF TURKISH >60 Normal >=60 [facility] Comment on above: Performed By: #### R UBIGG #### [facility] [address] [address] [address] Oscar Maddox Globulin (S) [Mass/Vol] 4.4 g/dL Normal [facility] Comment on above: Performed By: #### R UBIGG #### [facility] [address] [address] [address] Oscar Maddox Glucose [Mass/Vol] 106 mg/dL Normal 74-106 [facility] Comment on above: Performed By: #### R UBIGG #### [facility] [address] [address] [address] Oscar Maddox Potassium [Moles/Vol] 3.9 mmol/L Normal 3.5-5.1 [facility] Comment on above: Performed By: #### R UBIGG #### [facility] [address] [address] [address] Oscar Maddox Protein [Mass/Vol] 8.0 g/dL Normal 6.4-8.2 [facility] Comment on above: Performed By: #### R UBIGG #### [facility] [address] [address] [address] Oscar Maddox Sodium [Moles/Vol] 142 mmol/L Normal 136-145 [facility] Comment on above: Performed By: #### R UBIGG #### [facility] [address] [address] [address] Oscar Maddox Urea nitrogen [Mass/Vol] 11.0 mg/dL Normal 7.0-18.0 [facility] Comment on above: Performed By: #### R UBIGG #### [facility] [address] [address] [address] Oscar Maddox Urea nitrogen/Creatinine [Mass ratio] 13.6 mg/mg Normal [facility] Comment on above: Performed By: #### R UBIGG #### [facility] [address] [address] [address] Oscar Maddox URINE MICROSCOPIC ONLYon BACTERIA TRACE Abnormal NONE SEEN [facility] Comment on above: Performed By: #### OSVALDO JOY, PREGU #### [facility] [address] [address] [address] Oscar Maddox Bacteria identified Cx Nom (U) NOT INDICATED Normal [facility] Comment on above: Performed By: #### OSVALDO JOY, PREGU #### [facility] [address] [address] [address] Oscar Maddox CAST NONE SEEN Normal NONE SEEN [facility] Comment on above: Performed By: #### OSVALDO JOY, PREGU #### [facility] [address] [address] [address] Oscar Maddox Crystals LM Nom (Urine sed) NONE SEEN Normal NONE SEEN [facility] Comment on above: Performed By: #### OSVALDO JOY, PREGU #### [facility] [address] [address] [address] Oscar Maddox Epithelial cells LM Ql (Urine sed) RARE Normal NONE SEEN /RARE [facility] Comment on above: Performed By: #### OSVALDO JOY, PREGU #### [facility] [address] [address] [address] Oscar Maddox MUCOUS NONE SEEN Normal NONE SEEN [facility] Comment on above: Performed By: #### OSVALDO JOY, PREGU #### [facility] [address] [address] [address] Oscar Maddox RBC 0-2 Normal 0-2 [facility] Comment on above: Performed By: #### OSVALDO JOY, PREGU #### [facility] [facility] [address] [address] [address] Oscar Maddox WBC NONE SEEN Normal NONE SEEN [facility] Comment on above: Performed By: #### OSVALDO JOY, PREGU #### [facility] [address] [address] [address] Oscar Maddox CBC AUTO DIFFon 06-27-2022 BASO # 0.1 103/ul Normal 0.0-0.1 [facility] Comment on above: Performed By: #### C BC #### [facility] [address] [address] [address] Oscar Maddox Basophils/100 WBC (Bld) 0.4 % Normal 0.2-2.0 [facility] Comment on above: Performed By: #### C BC #### [facility] [address] [address] [address] Oscar Maddox EO # 0.2 103/ul Normal 0.0-0.7 [facility] Comment on above: Performed By: #### C BC #### [facility] [address] [address] [address] Oscar Maddox Eosinophils/100 WBC (Bld) 1.3 % Normal 0.9-7.0 [facility] Comment on above: Performed By: #### C BC #### [facility] [address] [address] [address] Oscar Maddox Erythrocyte distribution width (RBC) [Ratio] 14.1 % Normal 11.0-15.0 [facility] Comment on above: Performed By: #### C BC #### [facility] [address] [place] [address] Dr. Oscar Maddox Hematocrit (Bld) [Volume fraction] 34.6 % Critically low 36.0-48.0 [facility] Comment on above: Performed By: #### C BC #### [facility] [address] [address] [address] Oscar Maddox Hemoglobin (Bld) [Mass/Vol] 11.8 g/dL Critically low 12.0-16.0 [facility] Comment on above: Performed By: #### C BC #### [facility] [address] [address] [address] Oscar Maddox IG # 0.10 10e3/ul Critically high 0.00-0.03 [facility] Comment on above: Performed By: #### C BC #### [facility] [address] [address] [address] Oscar Maddox IG % 0.7 % Critically high 0.0-0.5 [facility] Comment on above: Performed By: #### C BC #### [facility] [address] [place] [address] Dr. Oscar Maddox LYMPH # 2.2 103/ul Normal 1.2-3.8 [facility] Comment on above: Performed By: #### C BC #### [facility] [address] [place] [address] Dr. Oscar Maddox Lymphocytes/100 WBC (Bld) 15.0 % Critically low 20.5-60.0 [facility] Comment on above: Performed By: #### C BC #### [facility] [address] [place] [address] Dr. Oscar Maddox MANUAL DIFF REQ NO Normal [facility] Comment on above: Performed By: #### C BC #### [facility] [address] [place] [address] Dr. Oscar Maddox MCH (RBC) [Entitic mass] 29.6 pg Normal 26.7-34.0 [facility] Comment on above: Performed By: #### C BC #### [facility] [address] [place] [address] Dr. Oscar Maddox MCHC (RBC) [Mass/Vol] 34.1 g/dL Normal 29.9-35.2 [facility] Comment on above: Performed By: #### C BC #### [facility] [address] [place] [address] Dr. Oscar Maddox MCV (RBC) [Entitic vol] 86.9 fL Normal 81.0-99.0 [facility] Comment on above: Performed By: #### C BC #### [facility] [address] [place] [address] Dr. Oscar Maddox MONO # 1.1 103/ul Critically high 0.3-0.8 [facility] Comment on above: Performed By: #### C BC #### [facility] [address] [place] [address] Dr. Oscar Maddox Monocytes/100 WBC (Bld) 7.6 % Normal 1.7-12.0 [facility] Comment on above: Performed By: #### C BC #### [facility] [address] [place] [address] Dr. Oscar Maddox NEUT # 10.8 103/ul Critically high 1.4-6.5 [facility] Comment on above: Performed By: #### C BC #### [facility] [address] [place] [address] Dr. Oscar Maddox Neutrophils/100 WBC (Bld) 75.0 % Normal 43.0-75.0 [facility] Comment on above: Performed By: #### C BC #### [facility] [address] [place] [address] Dr. Oscar Maddox Platelet mean volume (Bld) [Entitic vol] 12.6 fL Normal 9.5-13.5 [facility] Comment on above: Performed By: #### C BC #### [facility] [address] [place] [address] Dr. Oscar Maddox PLT 160 103/ul Normal 150-450 [facility] Comment on above: Performed By: #### C BC #### [facility] [address] [place] [address] Dr. Oscar Maddox RBC 3.98 106/ul Critically low 4.20-5.40 [facility] Comment on above: Performed By: #### C BC #### [facility] [address] [place] [address] Dr. Oscar Maddox WBC 14.4 103/ul Critically high 4.0-11.[address] [facility] Comment on above: Performed By: #### C BC #### [facility] [address] [place] [address] Dr. Oscar Maddox Cov[facility]-19 [facility]on 06-06 SARS-CoV-2 (COVID-19) RNA ALIDA+probe Ql (Unsp spec) Not detected Normal NOT DETECTED [facility] Comment on above: Result Comment: When diagnostic [...] for this test is supported by the [place] of [employer] and Human Service's declaration that [...] used). Performed By: #### R UBIGG #### [facility] [address] [place] [address] Dr. Oscar Maddox D-DIMERon 06-27-2022 D-DIMER 6.06 mg/L FEU Critically high <=0.59 [facility] Comment on above: Performed By: #### N BOX #### [facility] [address] [place] [address] Dr. Oscar Maddox D-DIMER COMMENTS SEE BELOW Normal [facility] Comment on above: Result Comment: Incr eases [...] hospitalization. Performed By: #### N BOX #### [facility] [address] [place] [address] Dr. Oscar Maddox FIBRINOGENon 06-27-2022 FIBRINOGEN 653.0 mg/dl Critically high 200.0-400.0 [facility] Comment on above: Performed By: #### N BOX #### [facility] [address] [place] [address] Dr. Oscar Maddox PROF 14(COMP METB)on 022 Albumin [Mass/Vol] 2.2 g/dL Critically low 3.4-5.0 [facility] Comment on above: Performed By: #### R UBIGG #### [facility] [address] [address] [address] Oscar Maddox Albumin/Globulin [Mass ratio] 0.6 {ratio} Normal [facility] Comment on above: Performed By: #### R UBIGG #### [facility] [address] [address] [address] Oscar Maddox ALP [Catalytic activity/Vol] 157 U/L Critically high 46-116 [facility] Comment on above: Performed By: #### R UBIGG #### [facility] [address] [address] [address] Oscar Maddox ALT [Catalytic activity/Vol] 53 U/L Normal 14-59 [facility] Comment on above: Performed By: #### R UBIGG #### [facility] [address] [address] [address] Oscar Maddox Anion gap [Moles/Vol] 11.2 mmol/L Normal [facility] Comment on above: Performed By: #### R UBIGG #### [facility] [address] [address] [address] Oscar Maddox AST [Catalytic activity/Vol] 72 U/L Critically high 15-37 [facility] Comment on above: Performed By: #### R UBIGG #### [facility] [address] [address] [address] Oscar Maddox Bilirubin [Mass/Vol] 0.9 mg/dL Normal 0.2-1.0 [facility] Comment on above: Performed By: #### R UBIGG #### [facility] [address] [address] [address] Oscar Maddox Calcium [Mass/Vol] 7.9 mg/dL Critically low 8.5-10.1 [facility] Comment on above: Performed By: #### R UBIGG #### [facility] [address] [address] [address] Oscar Maddox Chloride [Moles/Vol] 103 mmol/L Normal 98-107 [facility] Comment on above: Performed By: #### R UBIGG #### [facility] [address] [address] [address] Oscar Maddox CO2 [Moles/Vol] 22.7 mmol/L Normal 21.0-32.0 [facility] Comment on above: Performed By: #### R UBIGG #### [facility] [address] [address] [address] Oscar Maddox Creatinine [Mass/Vol] 0.87 mg/dL Normal 0.55-1.02 [facility] Comment on above: Performed By: #### R UBIGG #### [facility] [address] [place] [address] Dr. Oscar Maddox EGFR-AF TURKISH >60 Normal >=[address] [facility] Comment on above: Performed By: #### R UBIGG #### [facility] [address] [address] [address] Oscar Maddox EGFR-NON AF TURKISH >60 Normal >=60 [facility] Comment on above: Performed By: #### R UBIGG #### [facility] [address] [address] [address] Oscar Maddox Globulin (S) [Mass/Vol] 3.8 g/dL Normal [facility] Comment on above: Performed By: #### R UBIGG #### [facility] [address] [address] [address] Oscar Maddox Glucose [Mass/Vol] 109 mg/dL Critically high 74-106 [facility] Comment on above: Performed By: #### R UBIGG #### [facility] [address] [address] [address] Oscar Maddox Potassium [Moles/Vol] 3.9 mmol/L Normal 3.5-5.1 [facility] Comment on above: Performed By: #### R UBIGG #### [facility] [address] [address] [address] Oscar Maddox Protein [Mass/Vol] 6.0 g/dL Critically low 6.4-8.2 [facility] Comment on above: Performed By: #### R UBIGG #### [facility] [address] [address] [address] Oscar Maddox Sodium [Moles/Vol] 133 mmol/L Critically low 136-145 [facility] Comment on above: Performed By: #### R UBIGG #### [facility] [address] [place] [address] Dr. Oscar Maddox Urea nitrogen [Mass/Vol] 13.0 mg/dL Normal 7.0-18.0 [facility] Comment on above: Performed By: #### R UBIGG #### [facility] [address] [place] [address] Dr. Oscar Maddox Urea nitrogen/Creatinine [Mass ratio] 14.9 mg/mg Normal [facility] Comment on above: Performed By: #### R UBIGG #### [facility] [address] [place] [address] Dr. Oscar Maddox PROTIMEon 06-27-2022 INR Coag (PPP) [Relative time] {INR} Normal [facility] Comment on above: Performed By: #### N BOX #### [facility] [address] [place] [address] Dr. Oscar Maddox INR GUIDELINES SEE BELOW Normal [facility] Comment on above: Result Comment: JO ANN RED INR: 2.0 - 3.0 CONDITIONS NOT LISTED BELOW 2.5 - 3.5 FOR PROSTHETIC HEART VALVE REPLACEMENT 2.5 - 3.5 RECURRENT THROMBOSIS Performed By: #### N BOX #### [facility] [address] [place] [address] Dr. Oscar Maddox PT Coag (PPP) [Time] 10.0 s Normal 9.0-11.6 [facility] Comment on above: Performed By: #### N BOX #### [facility] [address] [place] [address] Dr. Oscar Maddox PTTon 06-27-2022 aPTT Coag (Bld) [Time] 28.9 s Normal 22.3-36.2 [facility] Comment on above: Performed By: #### N BOX #### [facility] [address] [place] [address] Dr. Oscar Maddox TYPE AND SCREENon 06-27-2022 TYPE AND SCREEN Negative Normal [facility] Comment on above: Performed By: #### C BC #### [facility] [address] [place] [address] Dr. Oscar Maddox URIC ACID SERUMon 06-27-2022 Urate [Mass/Vol] 6.6 mg/dL Critically high 2.6-6.0 [facility] Comment on above: Performed By: #### R UBIGG #### [facility] [address] [place] [address] Dr. Oscar Maddox CULTURE URINEon 06-26-2022 CULTURE URINE Culture Observations : LIGHT GROWTH OF MIXED GENITAL JAKY. NO POTENTIAL PATHOGENS SEEN. Normal [facility] Comment on above: Performed By: #### C BC #### [facility] [address] [place] [address] Dr. Oscar Maddox UA (CLEAN/CATCH) HOSTESS/MICRO I F IND.on 06-26-2022 Bilirubin Ql (U) Negative Normal NEGATIVE [facility] Comment on above: Performed By: #### R UBIGG #### [facility] [address] [place] [address] Dr. Oscar Maddox Clarity (U) CLEAR Normal CLEAR [facility] Comment on above: Performed By: #### R UBIGG #### [facility] [address] [place] [address] Dr. Oscar Maddox Color (U) YELLOW Normal YELLOW [facility] Comment on above: Performed By: #### R UBIGG #### [facility] [address] [place] [address] Dr. Oscar Maddox Glucose Ql (U) Negative Normal NEGATIVE [facility] Comment on above: Performed By: #### R UBIGG #### [facility] [address] [place] [address] Dr. Oscar Maddox Hemoglobin Ql (U) MODERATE Abnormal NEGATIVE [facility] Comment on above: Performed By: #### R UBIGG #### [facility] [address] [place] [address] Dr. Oscar Maddox Ketones Ql (U) Negative Normal NEGATIVE [facility] Comment on above: Performed By: #### R UBIGG #### [facility] [address] [address] [address] Oscar Maddox LEUKOCYTES Negative Normal NEGATIVE [facility] Comment on above: Performed By: #### R UBIGG #### [facility] [address] [place] [address] Dr. Oscar Maddox Nitrite Ql (U) Negative Normal NEGATIVE [facility] Comment on above: Performed By: #### R UBIGG #### [facility] [address] [place] [address] Dr. Oscar Maddox pH (U) 7.0 [pH] Normal 5-9 [facility] Comment on above: Performed By: #### R UBIGG #### [facility] [address] [place] [address] Dr. Oscar Maddox SPEC GRAVITY 1.020 Normal 1.005-<=1.025 [facility] Comment on above: Performed By: #### R UBIGG #### [facility] [address] [place] [address] Dr. Oscar Maddox UA PROTEIN >300 Abnormal NEGATIVE/ TRACE [facility] Comment on above: Performed By: #### R UBIGG #### [facility] [address] [place] [address] Dr. Oscar Maddox UR MICRO IND INDICATED Normal [facility] Comment on above: Performed By: #### R UBIGG #### [facility] [address] [place] [address] Dr. Oscar Maddox Urobilinogen Qn (U) 0.2 {Natasha'U}/dL Normal 0.2 - 1. 0 [facility] Comment on above: Performed By: #### R UBIGG #### [facility] [address] [place] [address] Dr. Oscar Maddox URINE MICROSCOPIC ONLYon BACTERIA SMALL Abnormal NONE SEEN [facility] Comment on above: Performed By: #### R UBIGG #### [facility] [address] [place] [address] Dr. Oscar Maddox Bacteria identified Cx Nom (U) INDICATED Normal [facility] Comment on above: Performed By: #### R UBIGG #### [facility] [address] [place] [address] Dr. Oscar Maddox CAST SEEN Abnormal NONE SEEN [facility] Comment on above: Performed By: #### R UBIGG #### [facility] [address] [place] [address] Dr. Oscar Maddox Crystals LM Nom (Urine sed) NONE SEEN Normal NONE SEEN [facility] Comment on above: Performed By: #### R UBIGG #### [facility] [address] [place] [address] Dr. Oscar Maddox Epithelial cells LM Ql (Urine sed) FEW Abnormal NONE SEEN /RARE [facility] Comment on above: Performed By: #### R UBIGG #### [facility] [address] [place] [address] Dr. Oscar Maddox HYALINE CAST RARE Normal [facility] Comment on above: Performed By: #### R UBIGG #### [facility] [address] [place] [address] Dr. Oscar Maddox MUCOUS TRACE Abnormal NONE SEEN [facility] Comment on above: Performed By: #### R UBIGG #### [facility] [address] [place] [address] Dr. Oscar Maddox RBC 0-2 Normal 0-2 [facility] Comment on above: Performed By: #### R UBIGG #### [facility] [address] [place] [address] Dr. Oscar Maddox WBC 2-5 Abnormal NONE SEEN [facility] Comment on above: Performed By: #### R UBIGG #### [facility] [address] [place] [address] Dr. Oscar Maddox WBC CELLULAR CAST RARE Normal [facility] Comment on above: Performed By: #### R UBIGG #### [facility] [address] [address] [address] Oscar Maddox US PREG GROWTHon 06-15-2022 [...] by: CARISA BARKER Date: 2022-06-15 16:44 Normal [facility] GLUCOSE - 1HRon 05-09-2022 Glucose [Mass/Vol] 111 mg/dL Critically high 74-106 [facility] Comment on above: Performed By: #### N BOX #### [facility] [address] [address] [address] Oscar Maddox HEMOGRAM AND PLATELon 2021 Hematocrit (Bld) [Volume fraction] 37.3 % Normal 36.0-48.0 [facility] Comment on above: Performed By: #### N BOX #### [facility] [address] [address] [address] Oscar Maddox Hemoglobin (Bld) [Mass/Vol] 12.5 g/dL Normal 12.0-16.0 [facility] Comment on above: Performed By: #### N BOX #### [facility] [address] [place] [address] Dr. Oscar Maddox MCH (RBC) [Entitic mass] 29.6 pg Normal 26.7-34.0 [facility] Comment on above: Performed By: #### N BOX #### [facility] [address] [place] [address] Dr. Oscar Maddox MCHC (RBC) [Mass/Vol] 33.5 g/dL Normal 29.9-35.2 [facility] Comment on above: Performed By: #### N BOX #### [facility] [address] [place] [address] Dr. Oscar Maddox MCV (RBC) [Entitic vol] 88.4 fL Normal 81.0-99.0 [facility] Comment on above: Performed By: #### N BOX #### [facility] [address] [place] [address] Dr. Oscar Maddox PLT 266 103/ul Normal 150-450 [facility] Comment on above: Performed By: #### N BOX #### [facility] [address] [place] [address] Dr. Oscar Maddox RBC 4.22 106/ul Normal 4.20-5.40 [facility] Comment on above: Performed By: #### N BOX #### [facility] [address] [place] [address] Dr. Oscar Maddox WBC 10.8 103/ul Normal 4.0-11.0 [facility] Comment on above: Performed By: #### N BOX #### [facility] [address] [place] [address] Dr. Oscar Maddox PAP ACOG PANEL 2: 21 to 27on 03-15-2022 . . Normal [facility] Comment on above: Performed By: #### R UBIGG #### [facility] [address] [place] [address] Dr. Oscar Maddox Age Gdln ACOG Testing 21-29 Normal [facility] Comment on above: Performed By: #### R UBIGG #### [facility] [address] [place] [address] Dr. Oscar Maddox DIAGNOSIS: Comment Normal [facility] Comment on above: Result Comment: NEGA TIVE FOR INTRAEPITHELIAL LESION OR MALIGNANCY. Performed By: #### R UBIGG #### [facility] [address] [address] [address] Oscar Maddox Methodology: Comment Normal [facility] Comment on above: Result Comment: This liquid based ThinPrep(R) pap test was screened with the use of an image guided system. Performed By: #### R UBIGG #### [facility] [address] [address] [address] Oscar Maddox Note: Comment Normal [facility] Comment on above: Result Comment: The Pap smear is a screening test designed to aid in the detection of premalignant and malignant conditions of the uterine cervix. It is not a diagnostic procedure and should not be used as the sole means of detecting cervical cancer. Both false-positive and false-negative reports do occur. . Performed By: #### R UBIGG #### [facility] [address] [address] [address] Oscar Maddox Performed by: Comment Normal [facility] Comment on above: Result Comment: Jie Del Real Internal Consultant (ASCP) Performed By: #### R UBIGG #### [facility] [address] [address] [address] Oscar Maddox Reflex Criteria: Comment Normal [facility] Comment on above: Result Comment: The HPV DNA reflex criteria were not met with this specimen result therefore, no HPV testing was performed. . Performed By: #### R UBIGG #### [facility] [address] [address] [address] Oscar Maddox Specimen adequacy: Comment Normal [facility] Comment on above: Result Comment: Sati sfactory for evaluation. No endocervical component is identified. Performed By: #### R UBIGG #### [facility] [address] [place] [address] Dr. Oscar Maddox US PREG ANATOMY SINGLEon [...] EZRA STRONG Date: 2022-03-15 10:32 Normal [facility] CHLAMYDIA/GONOCOCCUS ALIDA (SW AB/URINE/PAPon 03-11-2022 Chlamydia trachomatis, ALIDA Negative Normal Negative [facility] Comment on above: Performed By: #### R UBIGG #### [facility] [address] [place] [address] Dr. Oscar Maddox Neisseria gonorrhoeae, ALIDA Negative Normal Negative [facility] Comment on above: Performed By: #### R UBIGG #### [facility] [address] [address] [address] Oscar Maddox VAGINITIS/VAGINOSIS DNA PROB Chilo 03-10-2022 Virgie species Negative Normal Negative [facility] Comment on above: Performed By: #### N BOX #### [facility] [address] [address] [address] Oscar Maddox Gardnerella vaginalis Negative Normal Negative [facility] Comment on above: Performed By: #### N BOX #### [facility] [address] [address] [address] Oscar Maddox Trichomonas vaginalis Negative Normal Negative [facility] Comment on above: Performed By: #### N BOX #### [facility] [address] [address] [address] Oscar Maddox US PREG PLACENTAon US PREG PLACENTA EXAMINATION: US PREG PLACENTA HISTORY: Patient currently COMPARISON: No relevant comparison available. FINDINGS: PLACENTA: Posterior, grade 0. No evidence of abruption or subchorionic hematoma. HEART RATE: 151 bpm OTHER: None. IMPRESSION: 1. Single live intrauterine . 2. Unremarkable posterior placenta. Electronically authenticated by: EZRA STRONG Date: 2022-03-06 12:12 Normal [facility] JAMES BOX TEST PT SEND OUTo n 01-13-2022 SENT TO REF LAB 01/13/2022 Normal [facility] Comment on above: Performed By: #### N BOX #### [facility] [address] [address] [address] Oscar Maddox HEPATITIS C VIRUS AB W/ REFL EX QUANTon 01-10-2022 HCV AB <0.1 Normal 0.0-0.9 [facility] Comment on above: Performed By: #### H CVPCRR #### [facility] [address] [place] [address] Dr. Oscar Maddox Interpretation: Comment Normal [facility] Comment on above: Result Comment: Nega tive Not infected with HCV, unless recent infection is suspected or other evidence exists to indicate HCV infection. Performed By: #### H CVPCRR #### [facility] [address] [place] [address] Dr. Oscar Maddox HEP B SURFACE ANTIGEN SCREEN on 01-08-2022 HBsAg Screen Negative Normal Negative [facility] Comment on above: Performed By: #### N BOX #### [facility] [address] [place] [address] Dr. Oscar Maddox HIV 1 AND 2 WITH REFLEXon HIV Screen 4th Generation wRfx Non-Reactive Normal Non Reactive [facility] Comment on above: Result Comment: HIV Negative HIV-1/HIV-2 antibodies and HIV-1 p24 antigen were NOT detected. There is no laboratory evidence of HIV infection. Performed By: #### N BOX #### [facility] [address] [place] [address] Dr. Oscar Maddox RPR QUANTon 01-08-2022 Rapid Plasma Reagin, Quant Non-Reactive Normal NonRea<1:1 [facility] Comment on above: Performed By: #### R PRQ #### [facility] [address] [place] [address] Dr. Oscar Maddox RUBELLA AB IGGon 01-08-2022 Rubella Antibodies, IgG 3.08 index Normal Immune >0.99 [facility] Comment on above: Result Comment: Non- immune <0.90 Equivocal 0.90 - 0.99 Immune >0.99 Performed By: #### R UBIGG #### [facility] [address] [place] [address] Dr. Oscar Maddox CBC AUTO DIFFon 01-07-2022 BASO # 0.0 103/ul Normal 0.0-0.1 [facility] Comment on above: Performed By: #### C BC #### [facility] [address] [place] [address] Dr. Oscar Maddox Basophils/100 WBC (Bld) 0.5 % Normal 0.2-2.0 [facility] Comment on above: Performed By: #### C BC #### [facility] [address] [place] [address] Dr. Oscar Maddox EO # 0.1 103/ul Normal 0.0-0.7 [facility] Comment on above: Performed By: #### C BC #### [facility] [address] [place] [address] Dr. Oscar Maddox Eosinophils/100 WBC (Bld) 1.5 % Normal 0.9-7.0 [facility] Comment on above: Performed By: #### C BC #### [facility] [address] [place] [address] Dr. Oscar Maddox Erythrocyte distribution width (RBC) [Ratio] 12.6 % Normal 11.0-15.0 [facility] Comment on above: Performed By: #### C BC #### [facility] [address] [place] [address] Dr. Oscar Maddox Hematocrit (Bld) [Volume fraction] 39.8 % Normal 36.0-48.0 [facility] Comment on above: Performed By: #### C BC #### [facility] [address] [place] [address] Dr. Oscar Maddox Hemoglobin (Bld) [Mass/Vol] 13.2 g/dL Normal 12.0-16.0 [facility] Comment on above: Performed By: #### C BC #### [facility] [address] [place] [address] Dr. Oscar Maddox IG # 0.03 10e3/ul Normal 0.00-0.03 [facility] Comment on above: Performed By: #### C BC #### [facility] [address] [place] [address] Dr. Oscar Maddox IG % 0.4 % Normal 0.0-0.5 [facility] Comment on above: Performed By: #### C BC #### [facility] [address] [place] [address] Dr. Oscar Maddox LYMPH # 2.0 103/ul Normal 1.2-3.8 [facility] Comment on above: Performed By: #### C BC #### [facility] [address] [place] [address] Dr. Oscar Maddox Lymphocytes/100 WBC (Bld) 23.7 % Normal 20.5-60.0 [facility] Comment on above: Performed By: #### C BC #### [facility] [address] [place] [address] Dr. Oscar Maddox MANUAL DIFF REQ NO Normal [facility] Comment on above: Performed By: #### C BC #### [facility] [address] [place] [address] Dr. Oscar Maddox MCH (RBC) [Entitic mass] 28.9 pg Normal 26.7-34.0 [facility] Comment on above: Performed By: #### C BC #### [facility] [address] [place] [address] Dr. Oscar Maddox MCHC (RBC) [Mass/Vol] 33.2 g/dL Normal 29.9-35.2 [facility] Comment on above: Performed By: #### C BC #### [facility] [address] [place] [address] Dr. Oscar Maddox MCV (RBC) [Entitic vol] 87.3 fL Normal 81.0-99.0 [facility] Comment on above: Performed By: #### C BC #### [facility] [address] [place] [address] Dr. Oscar Maddox MONO # 0.4 103/ul Normal 0.3-0.8 [facility] Comment on above: Performed By: #### C BC #### [facility] [address] [place] [address] Dr. Oscar Mdadox Monocytes/100 WBC (Bld) 4.3 % Normal 1.7-12.0 [facility] Comment on above: Performed By: #### C BC #### [facility] [address] [place] [address] Dr. Oscar Maddox NEUT # 5.9 103/ul Normal 1.4-6.5 [facility] Comment on above: Performed By: #### C BC #### [facility] [address] [place] [address] Dr. Oscar Maddox Neutrophils/100 WBC (Bld) 69.6 % Normal 43.0-75.0 [facility] Comment on above: Performed By: #### C BC #### [facility] [address] [place] [address] Dr. Oscar Maddox Platelet mean volume (Bld) [Entitic vol] 10.1 fL Normal 9.5-13.5 [facility] Comment on above: Performed By: #### C BC #### [facility] [address] [place] [address] Dr. Oscar Maddox PLT 268 103/ul Normal 150-450 [facility] Comment on above: Performed By: #### C BC #### [facility] [address] [place] [address] Dr. Oscar Maddox RBC 4.56 106/ul Normal 4.20-5.40 [facility] Comment on above: Performed By: #### C BC #### [facility] [address] [place] [address] Dr. Ocsar Maddox WBC 8.4 103/ul Normal 4.0-11.0 [facility] Comment on above: Performed By: #### C BC #### [facility] [address] [place] [address] Dr. Oscar Maddox CULTURE URINEon 01-07-2022 CULTURE URINE Culture Observations : LIGHT GROWTH OF MIXED GENITAL JAKY. NO POTENTIAL PATHOGENS SEEN. Normal [facility] Comment on above: Performed By: #### C BC #### [facility] [address] [place] [address] Dr. Oscar Maddox GLYCOHEMOGLOBIN A1Con 2021 ADA RECOMMENDATION ADA THERAPEUTIC TARGET 6.0 - 7.0 ACTION SUGGESTED > 7.0 Normal [facility] Comment on above: Performed By: #### R UBIGG #### [facility] [address] [place] [address] Dr. Oscar Maddox Glucose [Mass/Vol] 105 mg/dL Normal [facility] Comment on above: Performed By: #### R UBIGG #### [facility] [address] [place] [address] Dr. Oscar Maddox HbA1c (Bld) [Mass fraction] 5.3 % Normal <=6.0 [facility] Comment on above: Performed By: #### R UBIGG #### [facility] [address] [place] [address] Dr. Oscar Maddox TYPE AND SCREENon 01-07-2022 TYPE AND SCREEN Negative Normal [facility] Comment on above: Performed By: #### C BC #### [facility] [address] [place] [address] Dr. Oscar Maddox US PREG TVon 12-23-2021 [...] by: EZRA STRONG Date: 2021-12-23 09:32 Normal [facility] Encounters Encounter Date Encounter Type Care Provider Facility Start: 10-22-2024 End: 10-22-2024 ambulatory Rebeca L Josiah Facility:[facility] Rehana del cid Start: 09-17-2024 End: 09-17-2024 ambulatory Rebeca L Josiah Facility:[facility] Rehana nehemias Start: 09-04-2024 ambulatory [facility] Start: 12-10-2023 End: 12-10-2023 ambulatory AMY ARAIZA Not Available Start: 11-12-2023 End: 11-12-2023 ambulatory WILMAN BAEZA Not Available Start: 10-23-2023 End: 10-23-2023 ambulatory VLAD GARCIA Not Available Start: 09-28-2022 End: 09-29-2022 ambulatory ARVIND WALDRON Facility:[facility] Start: 08-01-2022 End: 08-07-[address] SATHISH WEBSTER Facility:[facility] Start: 06-27-2022 End: 06-27-[address] NAYELI LEDESMA Facility:[facility] Start: 06-15-2022 End: 06-16-[address] CARISA BARKER Facility:[facility] Start: 05-09-2022 End: 05-10-[address] WILMAN BAEZA Facility:[facility] Start: 03-15-2022 End: 03-16-[address] WILMAN BAEZA Facility:[facility] Start: 03-08-2022 End: 05-04-[address] WILMAN BAEZA Facility:[facility] Start: 03-06-2022 End: 03-06-[address] CHRISTOPHER ORTEZ Facility:[facility] Start: 01-13-2022 End: 01-14-[address] WILMAN BAEZA Facility:[facility] Start: 01-07-2022 End: 01-08-[address] WILMAN BAEZA Facility:[facility] Start: 12-23-2021 End: 12-24-[address] WILMAN BAEZA Facility:[facility] Payers Date Payer Category Payer Medicaid [id number] 2023 Unknown [id number] 1998 Unknown [id number] 2.16.84 [id number] 1998 Unknown [id number] 2.16.84 0.1.122533.3.579.2.593 1998 Unknown [id number] 2.16.84 0.1.189382.3.579.2.593 1998 Unknown [id number] 2.16.84 0.1.227127.3.579.2.593 1998 Unknown [id number] 2.16.84 0.1.876946.3.579.2.593 1998 Unknown [id number] 2.16.84 0.1.298381.3.579.2.593 1998 Unknown [id number] 2.16.84 0.1.244168.3.579.2.593 1998 Unknown [id number] 2.16.84 0.1.722496.3.579.2.593 1998 Unknown [id number] 2.16.84 0.1.822748.3.579.2.593 1998 Unknown [id number] 2.16.84 0.1.680146.3.579.2.593 1998 Unknown [id number] 2.16.84 0.1.763745.3.579.2.593 1998 Unknown [id number] 2.16.84 0.1.584333.3.579.2.1259 1998 Unknown [id number] 2.16.84 0.1.913020.3.579.2.1259 1998 Unknown [id number] 2.16.840 .1.139441.3.579.2.1259 1998 Unknown [id number] 2.16.8 40.1.854341.3.579.2.727 1998 Unknown [id number] 2.16.8 40.1.053786.3.579.2.727 1959 Self-pay 1959 Unknown [id number] 1959 Unknown [id number] Unknown [id number] 2.16.84 0.1.921474.3.579.2.593 Unknown [id number] 2.16.84 0.1.585214.3.579.2.593 Summary Purpose Family History No Family History Records FoundNo Family History Records FoundNo Family History Records Found Advance Directives No Advanced Directives Records FoundNo Advanced Directives Records FoundNo Advanced Directives Records Found Additional Source Comments INFORMATION SOURCE (unrecogn ized section and content) DATE CREATED AUTHOR [facility]03/2022 [facility] DATE CREATED AUTHOR AUTHOR'S ORGANIZ ATION 12/11/2023 [facility] DATE CREATED AUTHOR AUTHOR'S ORGANIZ ATION 12/04/2024 [facility] FOR RECORDS PERTAINING TO PATIENTS WHO ARE [...] BE BASED ON THE PRIMARY CLINICAL RECORDS. [facility] [employer] [facility]. provides no warranty or guarantee of the accuracy or completeness of information in this document.
[2025-01-09 02:27] VITALS: BP 128/82; PULSE 111; TEMP 36.8; O2SAT 96; BMI 45.5
--- NOTE | 2025-01-09 02:42 | ED.ABDPAIN1 ---
HPI - Abdominal Pain General Chief Complaint: Abdominal Pain Stated Complaint: FOOD POSIONING Time Seen by Provider: 01/09/25 02:35 Source: patient Mode of arrival: walk-in Limitations: no limitations History of Present Illness HPI narrative: This 24-year-old female presents for evaluation of nausea vomiting diarrhea and abdominal cramps and pain. The patient states she thinks she has food poisoning. She states that she had a big Mac earlier for dinner and shortly thereafter started becoming nauseated. She had an episode of diarrhea then abdominal cramps that were sharp and stabbing in nature. She has had 3 episodes of vomiting and several episodes of diarrhea. She has not had a fever. She denies the possibility of . She states she has been having sharp stabbing abdominal pain and cramps which brought her to the hospital. She has not had any fever. She denies any chest pain or shortness of breath. Related Data Home Medications ?Medication ?Instructions ?Recorded ?Confirmed omeprazole PRN acid reflux 09/04/24 Allergies Allergy/AdvReac Type Severity Reaction Status Date / Time pineapple Allergy Severe Anaphylaxis Verified 01/09/25 02:33 cefaclor (From Ceclor) AdvReac Severe Unknown Verified 01/09/25 02:33 cephalosporins Allergy Unknown Unknown Uncoded 01/09/25 02:33 Review of Systems ROS Status of ROS 10 or more systems reviewed and unremarkable except as noted in history and below PFSH PFS Social History Smoking status: Never smoker Little interest or pleasure in doing things: not at all Feeling down, depressed, or hopeless: not at all Exam Narrative Exam Narrative: Vital signs and Nursing Notes reviewed: Patient is afebrile. She is tachycardic with a pulse of 111, blood pressure is normal, she is not hypoxic with pulse ox of 96% on room air General: Awake, alert, oriented, nontoxic female, no acute distress, lying comfortably on the stretcher, no active vomiting HEENT: Normocephalic atraumatic, mucous membranes are moist and pink, eyes are clear, normal conjunctiva, vision is grossly intact, posterior pharynx is normal in appearance. Chest: Lungs are clear to auscultation with good air entry, there is no wheezing rhonchi or rales appreciated no accessory muscle use, patient is speaking in complete sentences-no chest wall tenderness to palpation CVS: Regular rate and rhythm S1-S2, no murmurs rubs or gallops, pulses are brisk and equal bilaterally ABD: Soft, nondistended, diffusely tender, localizes to the epigastrium and right upper quadrant and left lower quadrant, no rebound guarding or rigidity, bowel sounds are normal, no pulsatile masses appreciated Extremities: Moving all extremities, no lower extremity tenderness or swelling noted, negative Homans' sign, pulses are brisk and equal bilaterally Skin: Normal in appearance without rash,pallor, petechiae or purpura Neuro: No focal deficits Constitutional Vital Signs, click to edit/add: Last Vital Signs Temp 98.2 F 01/09/25 02:27 Pulse 94 H 01/09/25 05:02 Resp 18 01/09/25 05:02 BP 114/68 01/09/25 05:02 Pulse Ox 98 01/09/25 05:02 O2 Del Method Room Air 01/09/25 05:02 Course Vital Signs Vital signs: Vital Signs Temperature 98.2 F 01/09/25 02:27 Pulse Rate 111 H 01/09/25 02:27 Respiratory Rate 18 01/09/25 02:27 Blood Pressure 128/82 01/09/25 02:27 Pulse Oximetry 96 01/09/25 02:27 Oxygen Delivery Method Room Air 01/09/25 02:27 Temperature 98.2 F 01/09/25 02:27 Pulse Rate 94 H 01/09/25 05:02 Respiratory Rate 18 01/09/25 05:02 Blood Pressure 114/68 01/09/25 05:02 Pulse Oximetry 98 01/09/25 05:02 Oxygen Delivery Method Room Air 01/09/25 05:02 MDM - Abdominal Pain MDM Narrative Medical decision making narrative: This 24-year old female presents for evaluation of nausea vomiting and diarrhea and abdominal cramping and pain. Symptoms started after having [employer] earlier tonight. She started with diarrhea and then became nauseated and had several episodes of vomiting. Upon arrival she was mildly tachycardic. Her abdomen is diffusely tender and localizes to the epigastrium right upper quadrant and left lower quadrant. She had an additional episode of diarrhea while in the emergency department. An IV was placed and she was medicated with IV fluids, Zofran, Pepcid, Toradol and IM Bentyl. On reevaluation she is feeling better and her nausea has improved and she is tolerating ice chips. Routine labs are reviewed. Her white count is elevated 14.2 with a stable hemoglobin. Electrolytes and liver function tests are normal. Lipase is normal at 30. On reevaluation she is feeling much better. Her cramps have resolved. She will be discharged home with a prescription for Zofran and Bentyl with recommendation for clear liquid diet and slow advancement as tolerated. Lab Data Labs: Lab Results 01/09/25 Range/Units 03:45 WBC 14.2 H (4.0-11.0) 10^3/uL RBC 5.03 (4.20-5.40) 10^6/uL Hgb 14.3 (12.0-16.0) g/dL Hct 42.9 (36.0-48.0) % MCV 85.3 (81.0-99.0) fL MCH 28.4 (26.7-34.0) pg MCHC 33.3 (29.9-35.2) g/dL RDW 12.6 (11.0-15.0) % Plt Count 277 (150-450) 10^3/uL MPV 10.6 (9.5-13.5) fL Seg Neuts % (Manual) 94.0 H (43.0-75.0) Lymphocytes % (Manual) 4.0 L (20.5-60.0) % Monocytes % (Manual) 2.0 (1.7-12.0) % Eosinophils % (Manual) 0.0 L (0.9-7.0) % Basophils % (Manual) 0.0 L (0.2-2.0) % Neutrophils # (Manual) 13.34 H (1.4-6.5) 10^3/uL Lymphocytes # (Manual) 0.56 L (1.20-3.80) 10^3/uL Monocytes # (Manual) 0.28 L (0.30-0.80) 10^3/uL Eosinophils # (Manual) 0.00 (0.00-0.70) 10^3/uL Basophils # (Manual) 0.00 (0.00-0.10) 10^3/uL Sodium 137 (136-145) mmol/L Potassium 3.9 (3.5-5.1) mmol/L Chloride 103 (98-107) mmol/L Carbon Dioxide 23.0 (21.0-32.0) mmol/L Anion Gap 14.9 BUN 15.0 (7.0-18.0) mg/dL Creatinine 0.71 (0.55-1.02) mg/dL Est GFR ( Amer) >60 (>=60 mL/min/1.73m^2) Est GFR (Non-Af Amer) >60 (>=60 mL/min/1.73m^2) BUN/Creatinine Ratio 21.1 Glucose 128 H (74-106) mg/dL Calcium 8.5 (8.5-10.1) mg/dL Total Bilirubin 0.9 (0.2-1.0) mg/dL AST 16 (15-37) U/L ALT 15 (14-59) U/L Alkaline Phosphatase 72 (46-116) U/L Total Protein 7.1 (6.4-8.2) g/dL Albumin 3.4 (3.4-5.0) g/dL Globulin 3.7 g/dL Albumin/Globulin Ratio 0.9 Lipase 30.0 (16.0-77.0) U/L Discharge Plan Discharge Chief Complaint: Abdominal Pain Clinical Impression: Acute gastroenteritis Prescriptions / Home Meds: No Action omeprazole PRN (Reason: acid reflux) Print Language: [place] Referrals: VLAD GARCIA [Primary Care Provider] - 1 week
[2025-01-09] MEDS: DICYCLOMINE HCL 20 MG/2 ML VIAL IM (03:27)
[2025-01-09] MEDS: 0.9 % SODIUM CHLORIDE 1,000 ML 1000 ML IV (03:39)
[2025-01-09] MEDS: ONDANSETRON PF 4 MG/2 ML VIAL IV (03:44)
[2025-01-09] MEDS: FAMOTIDINE/PF 20 MG/2 ML VIAL IV (03:45)
[2025-01-09] MEDS: KETOROLAC TROMETHAMINE 30 MG/ML VIAL IVP (03:47)
[2025-01-09 04:04] LABS: Hematocrit 42.9 % (36.0-48.0); Hemoglobin 14.3 g/dL (12.0-16.0); Mean Corpuscular HGB Conc 33.3 g/dL (29.9-35.2); Mean Corpuscular Hemoglobin 28.4 pg (26.7-34.0); Mean Corpuscular Volume 85.3 fL (81.0-99.0); Mean Platelet Volume 10.6 fL (9.5-13.5); Platelet Count 277 10^3/uL (150-450); Red Blood Count 5.03 10^6/uL (4.20-5.40); Red Cell Distribution Width 12.6 % (11.0-15.0); White Blood Count 14.2 10^3/uL (4.0-11.0)
[2025-01-09 04:17] LABS: Alanine Aminotransferase 15 U/L (14-59); Albumin Globulin Ratio 0.9; Albumin Level 3.4 g/dL (3.4-5.0); Alkaline Phosphatase 72 U/L (46-116); Anion Gap 14.9; Aspartate Amino Transferase 16 U/L (15-37); BUN Creatinine Ratio 21.1; Bilirubin Total 0.9 mg/dL (0.2-1.0); Calcium 8.5 mg/dL (8.5-10.1); Chloride 103 mmol/L (98-107); Estimated GFR (African America >60 (>=60 mL/min/1.73m^2); Estimated GFR (Non-African Ame >60 (>=60 mL/min/1.73m^2); Globulin 3.7 g/dL; Glucose 128 mg/dL (74-106); Potassium 3.9 mmol/L (3.5-5.1); Sodium 137 mmol/L (136-145); Total Protein 7.1 g/dL (6.4-8.2)
[2025-01-09 04:39] LABS: Lymphocytes Absolute Manual 0.56 10^3/uL (1.20-3.80); Monocytes Absolute Manual 0.28 10^3/uL (0.30-0.80); Segmented Neut Absolute Manual 13.34 10^3/uL (1.4-6.5)
[2025-01-09 05:02] VITALS: BP 114/68; PULSE 94; O2SAT 98
[2025-01-09] MEDS: ONDANSETRON 4 MG RAPDIS TABLET SL (06:15)
== END 2025-01-09 06:29 | disposition home or self-care (01) ==
PROVIDERS: Emergency Provider Emergency Medicine; PCP Family Medicine
DX: K52.9 Noninfective gastroenteritis and colitis, unspecified (principal)
CPT/HCPCS: 36415; 80053; 83690; 85007; 85027; 96361; 96372; 96374; 96375; 99284; J0500; J1885; J2405; J3490; Q0162